=== PATIENT | female | born 1955 | race Caucasian/White ===

== ENCOUNTER → 2019-02-18 09:57 | Outpatient (CLI) | payer OTHER, SELFPAY ==
--- NOTE | 2019-02-18 09:59 | BI_ITS ---
MAMMOGRAPHY - BILATERAL SCREENING REASON FOR EXAM: Female, 63 years old. Routine annual screening examination. PERTINENT HISTORY: Non-contributory. TECHNIQUE: Digital bilateral breast martha (3D mammographic acquisition) in the CC and MLO projections. 2-D mediolateral oblique (MLO) and craniocaudad (CC) views of both breasts were obtained. CAD: Full Field Digital Mammography with Computer Added Detection was performed. COMPARISON: Comparison is made with prior study dated February 19, 2012. FINDINGS: Breast Composition: There are scattered areas of fibroglandular density. Stable asymmetry of breast tissue with more breast tissue is seen in the left retroareolar region as compared to the right side. There are no dominant masses or suspicious calcifications. Stable appearance of the 7.7 mm well-defined nodule in the upper lateral portion of the right breast. This has the appearance of a small lymph node. No other significant abnormalities are identified. There has been no significant change since the prior study. BI/SCREEN MAMM (CAD) W/MARTHA BILAT IMPRESSION: Stable bilateral screening mammogram. Yearly follow-up mammogram recommended. (A) ASSESSMENT CATEGORY: BIRADS Category 2: Benign. A letter regarding these results will be sent to the patient by the facility within 30 days. Approximately 10% of breast cancers are not detected by mammography. A normal mammogram should not delay biopsy of a clinically suspicious abnormality. [id number] Electronically Signed: Joe Mccallum, at 12:25 EDT , Service support ,
== END ==
PROVIDERS: Family Provider Family Medicine; PCP Family Medicine; Referring Provider Family Medicine; Visit Provider Family Medicine
DX: Z12.31 Encounter for screening mammogram for malignant neoplasm of breast (principal)
CPT/HCPCS: 77063; 77067

== ENCOUNTER 2019-03-15 07:41 | Day surgery (SDC) | payer OTHER, SELFPAY ==
--- NOTE | 2019-02-28 02:22 | HP_ITS ---
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 Is patient in pain?: No Allergies codeine Allergy (Mild, Verified 02/28/19 14:10) Unknown fluoxetine [From Prozac] Allergy (Mild, Verified 02/28/19 14:10) Unknown paroxetine [From Paxil] Allergy (Mild, Verified 02/28/19 14:10) Unknown Medications amitriptyline 50 mg tablet 50 mg PO DAILY 02/28/19 [History Confirmed 02/28/19] amlodipine 5 mg tablet 5 mg PO DAILY 02/28/19 [History Confirmed 02/28/19] chlorthalidone 50 mg tablet 50 mg PO DAILY 02/28/19 [History Confirmed 02/28/19] cholecalciferol (vitamin D3) 1,000 unit capsule 1,000 unit PO DAILY 02/28/19 [History Confirmed 02/28/19] cyclobenzaprine 10 mg tablet 10 mg PO HS 02/28/19 [History Confirmed 02/28/19] levothyroxine 50 mcg capsule 50 mcg PO DAILY 02/28/19 [History] lorazepam 0.5 mg tablet 0.5 mg PO QD-BID 02/28/19 [History Confirmed 02/28/19] meloxicam 15 mg tablet 15 mg PO DAILY 02/28/19 [History Confirmed 02/28/19] [facility] Medical History Anxiety (Acute) Hypothyroid (Acute) HTN (hypertension) (Chronic) Surgical History Heel spur (Acute) Status post carpal tunnel release (Acute) Traumatic plantar fasciitis (Acute) Social History (Updated 02/28/19 @ 14:22 by Terry Forrest MD) Smoking Status: Current every day smoker alcohol intake: never HPI HPI HPI: NIGHAT VILLANUEVA, is a 63 F who presents to the office today for HPI HPI Surgical H&P: Yes HPI: NIGHAT VILLANUEVA, is a 63 F who presents to the office today for surgical consultation regarding a change of bowel habit. Patient's primary care physician Shasta Paige and a written compromise surgical consult and recommendations were returned to him. Patient has been most recently seen by Dr. DONNA Bowman who has now retired. Patient was strongly recommended to have a colonoscopy. The patient notes 3 to 4-year history of progressive change of bowel habits with a small pebble-like stool and incomplete evacuation. She claims that she occasionally has some bright red blood to which she attributes external hemorrhoids. She has never had a colonoscopy or flexible sigmoidoscopy. She has had very slow progressive weight gain. No unexpected weight loss. She is a chronic tobacco smoker. She recently has had some intermittent anorexia. Nothing significant. She has had no previous imaging of her abdomen no CT scans. She has not had any previous abdominal surgery. ROS General General: Yes fatigue; no weight change, appetite, colon cancer, breast cancer or weakness HEENT HEENT: No difficulty swallowing, eye injury, eye surgery, swollen glands or hoarseness Endo Endocrine: No thyroid disease, diabetes mellitus, thyroid cancer, Hair loss, heat intolerance or cold intolerance Skin Skin: No rash or changing moles Breast Breast: No left breast lump, right breast lump, nipple discharge, breast pain, abnormal mammogram, abnormal US or breast enlargement Musc Musculoskeletal: Yes back problems and arthritis; no rheumatoid arthritis, gout or joint pain Cardio Cardiovascular: Yes high blood pressure; no murmur, pacemaker, heart disease, atrial fibrillation, heart attack, heart stent, palpitations, shortness of breat with exertion or chest pain Psych Psychiatric: No depression, anxiety or hearing voices Resp Respiratory: No shortness of breath, No sleep apnea, No cough, No COPD, No asthma, No emphysema, No wheezing Gastro Gastrointestinal: Yes abdominal pain, No nausea or vomiting, No diarrhea, Yes constipation, No blood in stool, No acid reflux, Yes hemorrhoids, No ulcers, No gallbladder problem, No black,tarry stools Ahsan Hematologic: No blood thinners, No blood disorders, No bleeding, No anemia, No blood clots Neuro Neurologic: No system reviewed and no additional complaints, except as docu, No as per HPI, No abnormal walking, No abnormal hearing, No abnormal movements, No abnormal speech, No behavioral changes, No burning sensations, No confusion, No seizure-like activity, No unsteadiness, No dizziness, No localized weakness, No frequent falls, No headache(s), No lack of coordination, No loss of vision, No memory loss, No numbness, No other visual disturbances, No radiating pain, No restless legs, No sensory deficit, No fainting, No tingling, No tremor(s), No weakness, No other Exam Const General: cooperative, comfortable, no acute distress Nutritional Appearance: obese Orientation: alert, awake, oriented x3 Other: Odor of tobacco HENMT Head: normal to inspection Chest Chest palpation & inspection: normal inspection of the chest Breast Palpation: No nipple discharge Resp Effort & Inspection: normal respiratory effort Auscultation: clear to auscultation bilaterally Cardio Rate: regular rate Rhythm: regular rhythm Heart Sounds: no murmurs GI Inspection: normal to inspection Palpation: soft, no hepatosplenomegaly Auscultation: normal bowel sounds Musc Cervical Spine: normal cervical lordosis Neuro Cognition: normal cognition Extrem General: no calf tenderness bilaterally Psych Affect: normal affect Assessment & Plan Problems 1. Change in bowel habit R19.4 Plan I recommended the patient a colonoscopy with possible biopsy or polypectomy if indicated. I have discussed the technique, benefits, risks, alternatives. She has had an opportunity to ask and have questions answered. She requests IV sedation. Careful inspection for source of change of bowel habits and intermittent rectal bleeding will be pursued. I have vigorously encouraged the patient to cease her tobacco use/nicotine use in all forms. She would like to schedule and proceed as noted. I appreciate the option of assisting with her surgical care. CC: Dr. James Forrest M.D., F.A.C.S. Coding Level of Care Code 07573 Diagnoses Change in bowel habit R19.4 02/28/19 1422 <Electronically signed by Terry cheatham MD> Date _ Terry Forrest MD I have re-examined the patient. There are no clinical changes since date of exam.
[2019-02-28 14:08] VITALS: BMI 33.3
[2019-03-15] VITALS (7 sets, daily range): BP systolic 81–157; BP diastolic 63–109; PULSE 57–75; RESP 14–18; TEMP 36–36.4; O2SAT 92–99; BMI 32.5
[2019-03-15] MEDS: Lactated Ringers 1,000 ML 100 ML IV (08:11)
--- NOTE | 2019-03-15 08:45 | COLBX_PTH ---
PATIENT: NIGHAT VILLANUEVA LOC: EN U#:[id number] AGE/SX: 63/F ROOM: RE03/15/[address]: Dr. Terry Forrest MD : 1955 BED: DIS: 03/15/2019 SPEC #: [id number] RECD: 03/15/19 13:40 STATUS: CARITO HAJA #: [id number] MING: 03/15/19 08:[address]: Terry Forrest DEPT: SURGICAL PATHOLOGY RECD BY: Vadim Raymundo ENTERED: 03/15/19 13:54 SP TYPE: COLON BX OTHR DR: Dr. James Paige MD Tissues: SPLENIC FLEXURE Procedures: Surgery Specimen Level IV HEADER OPERATION: Colonoscopy (MOD) PRE-OP DIAGNOSIS: Change in bowel habits TISSUE SUBMITTED: Splenic flexure polyp biopsy MICROSCOPIC DIAGNOSIS Splenic flexure polyp, biopsy: A polypoid fragment of colonic mucosa, no pathologic diagnosis. SJ:natalie 03/16/19 MICROSCOPIC DESCRIPTION Slides are reviewed. GROSS DESCRIPTION Received in fixative is one container labeled with the patient's name and designated splenic flexure polyp biopsy. The specimen consists of one irregular fragment of light jamison soft tissue that measures 0.3 x 0.3 x 0.1 cm. The specimen is totally submitted in one cassette. / SJ:rg 03/15/19 TC:5 CPT: 23920
--- NOTE | 2019-03-15 08:52 | OP.ENDO_ITS ---
03/15/2019 James Paige Md Re : Colonoscopy procedure for Katelyn Velasquez Dear Royal This procedure was performed on Friday, March 15, 2019. My impressions and recommendations are as follows: Impressions : - Non-thrombosed internal hemorrhoids and internal hemorrhoids that prolapse with straining, but require manual replacement into the anal canal (Grade III) found on digital rectal exam. - Diverticulosis in the sigmoid colon and in the descending colon. - One 5 mm polyp at the splenic flexure, removed with a cold biopsy forceps. Resected and retrieved. Recommendations : - Await pathology results. - Repeat colonoscopy in 5 years for surveillance based on pathology results. - Return to my office in 1 week. - Discharge patient to home. - Resume previous diet. - Continue present medications. - Use fiber, for example Citrucel, Fibercon, Konsyl or Metamucil. Will offer office appt. to discuss ppH vs hemorrhoidectomy My findings are described in the full procedure note, which is enclosed. If I can be of further assistance, please feel free to contact me at Doctor phone number(s): Work: . Sincerely, Terry Forrest MD 03/15/2019 8:51:48 AM This report has been signed electronically.
== END 2019-03-15 09:31 | disposition home or self-care (01) ==
LOC: EN 07:41 → AC 07:43
PROVIDERS: Family Provider Family Medicine; PCP Family Medicine; Referring Provider Family Medicine; Visit Provider Surgery
PROC: 0DJD8ZZ Inspection of Lower Intestinal Tract, Via Natural or Artificial Opening Endoscopic (ICD-10-PCS; CPT 45378; principal; 2019-03-15 08:40)
DX: D12.3 Benign neoplasm of transverse colon (principal); K57.30 Diverticulosis of large intestine without perforation or abscess without bleeding; K64.2 Third degree hemorrhoids; K62.5 Hemorrhage of anus and rectum; I10 Essential (primary) hypertension; E03.9 Hypothyroidism, unspecified; F41.9 Anxiety disorder, unspecified; F17.200 Nicotine dependence, unspecified, uncomplicated; Z79.899 Other long term (current) drug therapy
CPT/HCPCS: 45380; 88305; 99152; 99153; J7120

== ENCOUNTER 2021-09-17 13:05 | Outpatient (CLI) | payer MEDICARE, SELFPAY ==
[2021-09-17 13:15] LABS: Bacteria 0 SEEN /hpf (None Seen); Mucous, Urine 0 SEEN /hpf (<or=2+); Red Blood Cells-Urine 0 SEEN /hpf (0-5); White Blood Cells 0 SEEN /hpf (0-5)
--- NOTE | 2021-09-17 13:15 | RAD_ITS ---
INDICATION: BACK PAIN, EXAMINATION/TECHNIQUE: X-RAY - XR Abdomen W/ Decub and/or Erect Views COMPARISON: None FINDINGS: BOWEL GAS PATTERN: Non-obstructive. No bowel or stomach distention. Abundance of stool in the large bowel. FREE AIR: Not assessed on a single supine view. ORGANOMEGALY: Not seen. CALCIFICATIONS: Multiple subtle calcifications visualized superimposed over the left renal bed the largest of which measures 0.4 cm. Pelvic calcifications are visualized consistent with phleboliths. Vascular calcifications seen. LOWER CHEST: No acute pathology. BONES AND SOFT TISSUES: Degenerative bone changes are seen. RAD/Abd Inc Decub and/or Erect IMPRESSION: Subtle calcifications visualized superimposed over the left renal bed. Electronically Signed: Brenton Ivan MD at 15:13 EDT ,
--- NOTE | 2021-09-17 13:20 | RAD_ITS ---
INDICATION: BACK PAIN EXAMINATION/TECHNIQUE: X-RAY - XR Chest 2 Views COMPARISON: 09/08/2021. FINDINGS: LINES/DEVICES: None. LUNGS: No consolidation, edema or effusion. No pneumothorax. MEDIASTINUM AND CARDIOVASCULAR STRUCTURES: Cardiac silhouette not enlarged. Central airways and mediastinal contour are unremarkable. BONES AND SOFT TISSUES: Degenerative bone changes.. RAD/Chest PA and Lateral IMPRESSION: No radiographic evidence of acute cardiopulmonary disease. Electronically Signed: Brenton Ivan MD at 15:14 EDT ,
[2021-09-17 15:10] LABS: Absolute Lymphocyte Count 3.36 X10^3/uL (0.83-4.51); Absolute Neutrophil Count 4.3 X10^3/uL (2.0-7.7); Basophil# 0.11 X10^3/uL; Basophil% 1.3 % (0-1); Eosinophil# 0.32 X10^3/uL; Eosinophils% 3.7 % (0-5); Hematocrit 45.5 % (37-47); Hemoglobin 15.5 g/dL (12.0-15.0); Lymphocyte # 3.36 X10^3/ul (0.83-4.51); Lymphocyte % 38.8 % (19-41); Mean Corp Hgb Conc 34.1 g/dL (32-36); Mean Corpuscular Hgb 30.6 pg (27.0-32.0); Mean Corpuscular Volume 89.9 fL (81-99); Mean Platelet Vol. 10.3 fl (6.2-12.0); Monocyte# 0.48 X10^3/uL; Monocyte% 5.5 % (0-10); NRBC Flagged by Analyzer 0 % (0-5); Neutrophil # 4.32 X10^3/uL (2.7-7.7); Platelet Count 262 K/mm3 (150-450); RBC Distribution Width CV 14.4 % (11.6-14.6); RBC Distribution Width SD 47.1 fl (35.1-43.9); Red Blood Count 5.06 M/mm3 (4.2-5.4); White Blood Count 8.7 K/mm3 (4.4-11.0)
[2021-09-17 15:12] LABS: Color, Urine Yellow (Yellow); Glucose, Dipstick Normal (Normal); Ketone-Dipstick 5 mg/dl (Negative); Leukocyte Esterase-Dipstick 25 /ul (Negative); Nitrite-Dipstick Negative (Negative); Occult Blood-Urine Negative /ul (Negative); Protein-Dipstick 15 mg/dl (Negative); Urine Bilirubin Dipstick Negative (Negative); Urine Clarity Clear (Clear); Urine Urobilinogen 1 mg/dl (Normal); Urine pH 6.5 (5.0 - 8.0)
[2021-09-17 15:18] LABS: Squamous Epithelial Cells - UA 0-5 SEEN /hpf (5-10)
[2021-09-17 15:31] LABS: ALB/GLOB Ratio 1.2 RATIO (0.9-2.4); AST(SGOT) 13 U/L (15-37); Alanine Aminotransfer ALT/SGPT 24 U/L (13-56); Albumin, Serum 4.2 g/dL (3.2-5.0); Alkaline Phosphatase 64 U/L (45-117); Anion Gap 3 (5-15); BUN 22 mg/dL (7-18); BUN/Creat Ratio 25.5 RATIO (10-20); Chloride 104 mmol/L (98-107); Creatinine, Serum 0.86 mg/dL (0.55-1.02); EST Glomerular Filtration Rate 70 mL/min (>60); Est Glom Filt Rate - Afr Amer 85 mL/min (>60); Globulin 3.5 g/dL (2.2-4.2); Glucose 89 mg/dL (74-106); Potassium 3.3 mmol/L (3.5-5.1); Protein, Total 7.7 g/dL (6.4-8.2); Sodium Level 140 mmol/L (136-145)
== END 2021-09-17 23:59 | disposition home or self-care (01) ==
LOC: MTLAB 13:11
PROVIDERS: PCP Family Medicine; Referring Provider Family Medicine; Visit Provider Family Medicine
DX: M54.9 Dorsalgia, unspecified (principal)
CPT/HCPCS: 36415; 71046; 74019; 80053; 81001; 85025

== ENCOUNTER → 2021-10-03 | Outpatient (CLI) | payer MEDICARE, SELFPAY ==
--- NOTE | 2021-10-03 18:53 | CT_ITS ---
ACR Level 3 findings have been noted. An addendum which confirms receipt of the report will follow. INDICATION: chronic back pain and hx kidney stones EXAMINATION: CT Abdomen And Pelvis W/O Contrast Injection TECHNIQUE: Helically acquired images were obtained of the abdomen and pelvis without the use of IV contrast. A radiation dose optimization technique was used for this scan. Oral contrast: None. COMPARISON: None FINDINGS: Evaluation of the solid organs and vascular structures is limited without intravenous contrast. Visualized lung bases: Unremarkable Liver: Diffusely hypodense consistent with fatty liver. Gallbladder: Multiple intraluminal stones seen. Spleen: Unremarkable Pancreas: Unremarkable Adrenal Glands: 2.4 cm right adrenal nodule measuring -14 [place] units. Kidneys: Unremarkable Vasculature: Moderate aortoiliac atherosclerotic disease. GI Tract: Scattered diverticula throughout the colon without evidence of inflammation. Circumferential wall thickening of a short segment of sigmoid colon/rectum. Lymphadenopathy: None Peritoneum: No ascites. Bladder: Unremarkable Reproductive organs: Unremarkable Bones/Soft tissues: There are diffuse degenerative changes of the spine. CT/Abdomen/Pelvis without Cont IMPRESSION: No renal or ureteral stones seen. 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 Circumferential wall thickening of a short segment of sigmoid colon/rectum. This could be related to chronic diverticulitis, however cannot rule out malignancy. Recommend colonoscopy. Fatty liver. Cholelithiasis. Electronically Signed: Efrain Amado MD at 21:19 EDT ,
== END | disposition home or self-care (01) ==
PROVIDERS: PCP Family Medicine; Visit Provider Family Medicine
DX: M54.9 Dorsalgia, unspecified (principal); G89.29 Other chronic pain; Z87.442 Personal history of urinary calculi
CPT/HCPCS: 74176

== ENCOUNTER → 2021-11-01 | Outpatient (CLI) | payer MEDICARE, SELFPAY ==
--- NOTE | 2021-11-01 08:41 | US_ITS ---
STUDY: ABDOMINAL ULTRASOUND - RIGHT UPPER QUADRANT REASON FOR VISIT: Female, 65 years old . Gallstones. Fatty liver. TECHNIQUE: Ultrasound evaluation of the right upper quadrant was performed with real-time and static bowling-scale imaging. TECHNICAL QUALITY: Adequate. COMPARISON: Comparison is made with prior CT scan of the abdomen and pelvis dated 10/03/2021. FINDINGS: Liver: The liver measures 15.8 cm. There is increased echogenicity consistent with fatty infiltration. The bile ducts are within normal limits. There is hepatic color flow. The direction of portal flow is hepatopetal. There is no demonstrated mass lesion. Gallbladder: Normal distended gallbladder. The gallbladder wall measures 2.1 mm. There is a positive sonographic Truong''s sign. There is a small amount of pericholecystic fluid. There are multiple echogenic structures within the gallbladder, consistent with multiple gallstones. Small amount of sludge is seen in the gallbladder lumen. Common Bile Duct (C.B.D.): The common bile duct measures 7.5 mm. Pancreas: Normal size of the head, body and tail of the pancreas. There is increased echogenicity of the pancreas. There is no demonstrated pancreatic mass or cyst. Right Kidney: Normal size of the right kidney. The right kidney measures 10.8 cm x 5.4 cm x 3.9 cm. Normal renal cortex. The right cortex measures 1.3 cm. There is no demonstrated renal mass or cyst. There is no right hydronephrosis. US/Gallbladder IMPRESSION: Fatty infiltration of the liver. Multiple gallstones with sludge in the gallbladder lumen. Positive TRUONG sign. Small amount of pericholecystic fluid. Electronically Signed: Joe Mccallum MD at 10:37 EDT ,
== END | disposition home or self-care (01) ==
PROVIDERS: PCP Family Medicine; Referring Provider Surgery; Visit Provider Surgery
DX: R93.89 Abnormal findings on diagnostic imaging of other specified body structures (principal)
CPT/HCPCS: 76705

== ENCOUNTER 2021-11-26 08:35 | Day surgery (SDC) | payer MEDICARE, SELFPAY ==
[2021-11-26] VITALS (7 sets, daily range): BP systolic 90–130; BP diastolic 63–84; PULSE 66–76; RESP 16–18; TEMP 36.1–36.4; O2SAT 95–100; BMI 29.7
--- NOTE | 2021-11-26 09:08 | HP.PCM_ITS ---
History and Physical Date of Admission: 11/26/21 Visit Reasons:?Colonoscopy Chief Complaint: c-scope Nitrate Operator Required: No Is patient in pain?: No Allergies paroxetine [From Paxil] Allergy (Mild, Verified 10/24/21 08:22) ALTERED SENSATIONcodeine Adverse Reaction (Mild, Verified 10/24/21 08:22) HEADACHESfluoxetine [From Prozac] Adverse Reaction (Mild, Verified 10/24/21 08:22) ALTERED SENSATION Medications amitriptyline 50 mg tablet 50 mg PO QHS 02/28/19 [History Confirmed 10/24/21] amlodipine 5 mg tablet 5 mg PO QHS 02/28/19 [History Confirmed 10/24/21] chlorthalidone 50 mg tablet 50 mg PO DAILY 02/28/19 [History Confirmed 10/24/21] cholecalciferol (vitamin D3) 25 mcg (1,000 unit) capsule 1,000 unit PO QHS 02/28/19 [History Confirmed 10/24/21] cyclobenzaprine 10 mg tablet 10 mg PO QHS PRN PRN 02/28/19 [History Confirmed 10/24/21] levothyroxine 50 mcg capsule 50 mcg PO DAILY 02/28/19 [History Confirmed 10/24/21] lorazepam 0.5 mg tablet 0.5 mg PO BID PRN PRN 02/28/19 [History Confirmed 10/24/21] potassium chloride 10 mEq tablet,extended release tablet PO 10/24/21 [History Confirmed 10/24/21] tramadol 50 mg tablet 50 mg PO? tab 10/24/21 [History Confirmed 10/24/21] PFSH Medical History?(Updated 10/24/21 @ 08:[address] Terry Forrest MD) Abnormal CT scan Anxiety Change in bowel habit Chronic constipation HTN (hypertension) Hypothyroid Internal hemorrhoid, bleeding Surgical History? Heel spur History of colonoscopy (~03/15/19) Status post carpal tunnel release Traumatic plantar fasciitis Social History? Smoking Status:? Current every day smoker alcohol intake:? never HPI HPI HPI: NIGHAT VILLANUEVA, is a 65 F who presents to the office today for surgical consultation regarding a possible colonoscopy.? The patient is referred by Dr. Yohan John intermittent compromise surgical consult recommendations will return to him.? Appears that her most recent colonoscopy was March 2019.? Possible 5 mm polyp in the splenic flexure but pathology simply demonstrated colonic mucosa.? She has also been consulted on for hemorrhoids.? Patient is still feeling urgency and occasional blood per rectum.? As of September 17, 2021 white blood cell count was 8.7 with a hemoglobin 15.5 and hematocrit of 45.5 and a platelet count of 262,000.? BUN is 22 and creatinine 0.86.? Liver function tests were normal.? Because of complaint of history of kidney stones and chronic back pain the patient had a CT abdomen pelvis without contrast on October 03, 2021 as noted below.? Multiple gallstones noted.? Moderate aortoiliac atherosclerotic disease.? Scattered diverticula throughout the colon with a suggestion of circumferential wall thickening of a short segment of the sigmoid.? No renal stones identified. Remotely I assisted her with infrared treatment of internal hemorrhoids which temporarily assisted her. He is complaining of spasm occasionally low abdomen not able to defecate stool but then straining and then having bright red blood occasionally clots.? She states that taking MiraLAX and fiber supplement actually made the bleeding worse.? That she actually filled the bowl with blood.? She does have problems with back pain and she points to the mid back but thinks that is more related to physical bending and lifting.? She has not previously been aware that she has had gallstones and she denies any particular food intolerance. She denies family history of colon cancer. October 03, 2021 ADDENDUM by Efrain Amado MD on 10/03/21 at 2119 INDICATION: chronic back pain and hx kidney stones EXAMINATION: CT Abdomen And Pelvis W/O Contrast Injection TECHNIQUE: Helically acquired images were obtained of the abdomen and pelvis without the use of IV contrast. A radiation dose optimization technique was used for this scan. Oral contrast: None. COMPARISON: None FINDINGS: Evaluation of the solid organs and vascular structures is limited without intravenous contrast. Visualized lung bases: Unremarkable Liver: Diffusely hypodense consistent with fatty liver. Gallbladder:? Multiple intraluminal stones seen. Spleen: Unremarkable Pancreas: Unremarkable Adrenal Glands: 2.4 cm right adrenal nodule measuring -14 [place] units. Kidneys: Unremarkable Vasculature: Moderate aortoiliac atherosclerotic disease. GI Tract: Scattered diverticula throughout the colon without evidence of inflammation.? Circumferential wall thickening of a short segment of sigmoid colon/rectum. Lymphadenopathy: None Peritoneum: No ascites. Bladder: Unremarkable Reproductive organs: Unremarkable Bones/Soft tissues: There are diffuse degenerative changes of the spine. 10/03/21 2119Date cc:? Dr. Yohan John MD ~*Signed ADDENDUM by Efrain Amado MD on 10/03/[address]/Abdomen/Pelvis without Cont IMPRESSION: ? No renal or ureteral stones seen. ? 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 ? Circumferential wall thickening of a short segment of sigmoid colon/rectum. This could be related to chronic diverticulitis, however cannot rule out malignancy.? Recommend colonoscopy. ? Fatty liver. ? Cholelithiasis. ? N.B. : Juliet Molina RN, confirmed on 10/04/2021 14:17:14 (ET) that the healthcare facility has received the radiology report. ? Electronically Signed: Efrain Amado MD at 21:19 EDT , ? 10/04/21 1424Date cc:? Dr. Yohan John MD ~*Signed ACR Level 3 findings have been noted.? An addendum which confirms receipt of the report will follow. INDICATION: chronic back pain and hx kidney stones EXAMINATION: CT Abdomen And Pelvis W/O Contrast Injection TECHNIQUE: Helically acquired images were obtained of the abdomen and pelvis without the use of IV contrast. A radiation dose optimization technique was used for this scan. Oral contrast: None. COMPARISON: None FINDINGS: Evaluation of the solid organs and vascular structures is limited without intravenous contrast. Visualized lung bases: Unremarkable Liver: Diffusely hypodense consistent with fatty liver. Gallbladder:? Multiple intraluminal stones seen. Spleen: Unremarkable Pancreas: Unremarkable Adrenal Glands: 2.4 cm right adrenal nodule measuring -14 [place] units. Kidneys: Unremarkable Vasculature: Moderate aortoiliac atherosclerotic disease. GI Tract: Scattered diverticula throughout the colon without evidence of inflammation.? Circumferential wall thickening of a short segment of sigmoid colon/rectum. Lymphadenopathy: None Peritoneum: No ascites. Bladder: Unremarkable Reproductive organs: Unremarkable Bones/Soft tissues: There are diffuse degenerative changes of the spine. CT/Abdomen/Pelvis without Cont IMPRESSION: ? No renal or ureteral stones seen. ? 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 ? Circumferential wall thickening of a short segment of sigmoid colon/rectum. This could be related to chronic diverticulitis, however cannot rule out malignancy.? Recommend colonoscopy. ? Fatty liver. ? Cholelithiasis. ? Electronically Signed: Efrain Amado MD at 21:19 EDT , ROS General General: No weight change, appetite, fatigue, colon cancer, breast cancer or weakness HEENT HEENT: No difficulty swallowing, eye injury, eye surgery, swollen glands or hoarseness Endo Endocrine: No thyroid disease, diabetes mellitus, thyroid cancer, Hair loss, heat intolerance or cold intolerance Skin Skin: No rash or changing moles Breast Breast: No left breast lump, right breast lump, nipple discharge, breast pain, abnormal mammogram, abnormal US or breast enlargement Musc Musculoskeletal: Yes back problems; No arthritis, rheumatoid arthritis, gout or joint pain Cardio Cardiovascular: Yes high blood pressure; No murmur, pacemaker, heart disease, atrial fibrillation, heart attack, heart stent, palpitations, shortness of breat with exertion or chest pain Psych Psychiatric: No depression, anxiety or hearing voices Resp Respiratory: No shortness of breath, No sleep apnea, No cough, No COPD, No asthma, No emphysema and No wheezing Gastro Gastrointestinal: No abdominal pain, No nausea or vomiting, No diarrhea, Yes constipation, No blood in stool, No acid reflux, Yes hemorrhoids, No ulcers, No gallbladder problem and No black,tarry stools Ahsan Hematologic: No blood thinners, No blood disorders, No bleeding, No anemia and No blood clots Neuro Neurologic: No system reviewed and no additional complaints, except as documented, No as per HPI, No abnormal gait, No abnormal hearing, No abnormal movements, No abnormal speech, No behavioral changes, No burning sensations, No confusion, No convulsions, No disequilibrium, No dizziness, No localized weakness, No frequent falls, No headache(s), No lack of coordination, No loss of vision, No memory loss, No numbness, No other visual disturbances, No radicular pain, No restless legs, No sensory deficit, No syncope, No tingling, No tremor(s), No weakness and No other Exam Const General: cooperative, comfortable and no acute distress Other: Odor of tobacco HENMT Head: normal to inspection Eyes General: appearance normal, both eyes and all related structures Neck Neck: normal visual inspection Chest Other: Increased AP diameter Resp Other: Clear apices.? Right basilar wheeze. Cardio Rate: regular rate Rhythm: regular rhythm GI Other: Soft, nontender, overweight, no palpable mass no tenderness Skin General: no rashes or lesions noted Neuro General: patient alert and patient awake Extrem General: no calf tenderness Psych Appearance: grossly normal Assessment and Plan Assessment and Plan (1) Abnormal CT scan: ?Status:?Acute (2) Internal hemorrhoid, bleeding: ?Status:?Acute (3) Back pain: ?Status:?Acute ?Qualifiers: ?Back pain location:?back pain in other location??Chronicity:?unspecified ? Qualified Code(s):?M54.89 - Other dorsalgia ? ? ? Orders:?Orders: ? Gallbladder Today R93.89 ?Plan - Dr. Terry Forrest MD: Patient with back pain usually exertional but questionable gallstones on CAT scan.? I recommend that we obtain a gallbladder ultrasound to confirm or deny the presence of gallstones. Problems with intermittent abdominal spasms and persistent problems with rectal bleeding.? Abnormal CT scan suggesting thickening of the sigmoid colon albeit this was an completely noncontrasted CT.? I recommend a colonoscopy with possible biopsy or polypectomy.? Previous exam March 2019.? I felt there was a polyp present but biopsy showed normal mucosa.? Very careful inspection for potential source of rectal bleeding and very careful inspection of hemorrhoidal disease within potential recommendations for further office follow-up to discuss definitive hemorrhoidal management. She has had an opportunity to ask and have questions answered.? We did make comment regarding her ongoing cigarette use and recommended cessation. She is not on any anticoagulants.? Denies history of DVT. I appreciate the opportunity of assisting with her surgical care we will schedule procedure at her discretion. Copy: Dr Yohan Forrest M.D., F.A.C.S. I have re-examined the patient. There are no clinical changes since date of exam. Terry Forrest M.D., F.A.C.S.
[2021-11-26] MEDS: Lactated Ringers 1,000 ML 15 ML IV (09:33)
--- NOTE | 2021-11-26 09:45 | COLBX_PTH ---
PATIENT: NIGHAT VILLANUEVA LOC: EN U#:[id number] AGE/SX: 66/F ROOM: RE11/26/[address]: Dr. Terry Forrest MD : 1955 BED: DIS: 11/26/2021 SPEC #: [id number] RECD: 11/26/21 10:51 STATUS: CARITO SMYTH #: [id number] MING: 11/26/21 09:[address]: Terry Forrest DEPT: SURGICAL PATHOLOGY RECD BY: Rj Duke ENTERED: 11/26/21 13:11 SP TYPE: COLON BX OTHR DR: Dr. Yohan John MD Tissues: Rectum, NOS Procedures: Surgery Specimen Level IV HEADER OPERATION: Colonoscopy (MAC) PRE-OP DIAGNOSIS: Abnormal CT scan, bleeding internal hemorrhoid, back pain TISSUE SUBMITTED: Proximal rectal polyps biopsy MICROSCOPIC DIAGNOSIS Proximal rectal polyps, biopsy: Fragments of polypoid colonic mucosa with focal hyperplastic change. AM:natalie 11/27/2021 MICROSCOPIC DESCRIPTION Slides are reviewed. GROSS DESCRIPTION Received in fixative is one container labeled with the patient's name and designated proximal rectal polyp biopsy. The specimen consists of multiple irregular fragments of light jamison soft tissue that in aggregate measure 1.5 x 0.3 x 0.1 cm. The specimen is totally submitted in one cassette. / SJ:natalie 11/26/2021 TC:5 CPT: 06499
--- NOTE | 2021-11-26 10:38 | OP.COLON_ITS ---
Patient Name: Katelyn Velasquez Procedure Date: 11/26/2021 10:06 AM Date of : 1955 Age: 66 Procedure: Colonoscopy Indications: Rectal bleeding, Abnormal CT of the GI tract Providers: Terry Forrest MD Referring MD: Yohan John Medicines: See the Anesthesia note for documentation of the administered medications Patient Profile: Last Colonoscopy: March 2019. Complications: No immediate complications. Procedure: Pre-Anesthesia Assessment: - Prior to the procedure, a History and Physical was performed, and patient medications and allergies were reviewed. The patient's tolerance of previous anesthesia was also reviewed. The risks and benefits of the procedure and the sedation options and risks were discussed with the patient. All questions were answered, and informed consent was obtained. Prior Anticoagulants: The patient has taken no previous anticoagulant or antiplatelet agents. ASA Grade Assessment: II - A patient with mild systemic disease. After reviewing the risks and benefits, the patient was deemed in satisfactory condition to undergo the procedure. After I obtained informed consent, the scope was passed under direct vision. Throughout the procedure, the patient's blood pressure, pulse, and oxygen saturations were monitored continuously. The adult colonoscope was introduced through the anus and advanced to the cecum, identified by appendiceal orifice and ileocecal valve. The colonoscopy was performed without difficulty. The patient tolerated the procedure well. The quality of the bowel preparation was good. The ileocecal valve and the appendiceal orifice were photographed. Scope In: 10:15:33 AM Scope Withdrawal Time 0 hours 10 minutes 43 seconds Scope Out: 10:32:32 AM Total Procedure Duration Time 0 hours 16 minutes 59 seconds Findings: The digital rectal exam findings include non-thrombosed external hemorrhoids, non-thrombosed internal hemorrhoids and internal hemorrhoids that prolapse with straining, but require manual replacement into the anal canal (Grade III). Four sessile polyps were found in the rectum. The polyps were 2 to 3 mm in size. These polyps were removed with a cold biopsy forceps. Resection and retrieval were complete. Multiple diverticula were found in the sigmoid colon and descending colon. The exam was otherwise without abnormality. Impression: - Non-thrombosed external hemorrhoids, non-thrombosed internal hemorrhoids and internal hemorrhoids that prolapse with straining, but require manual replacement into the anal canal (Grade III) found on digital rectal exam. - Four 2 to 3 mm polyps in the rectum, removed with a cold biopsy forceps. Resected and retrieved. - Diverticulosis in the sigmoid colon and in the descending colon. - The examination was otherwise normal. Recommendation: - Discharge patient to home. - Resume previous diet. - Continue present medications. - Repeat colonoscopy in 5 years for surveillance based on pathology results. - Return to my office in 1 week to discuss gallbladder disease Procedure Code(s): --- Professional --- 43673, Colonoscopy, flexible; with biopsy, single or multiple Diagnosis Code(s): --- Professional --- K64.2, Third degree hemorrhoids K64.4, Residual hemorrhoidal skin tags K62.1, Rectal polyp K62.5, Hemorrhage of anus and rectum K57.30, Diverticulosis of large intestine without perforation or abscess without bleeding R93.3, Abnormal findings on diagnostic imaging of other parts of digestive tract CPT copyright 2017 [employer]. All rights reserved. The codes documented in this report are preliminary and upon clinical trial educator review may be revised to meet current compliance requirements. Terry Forrest MD 11/26/2021 10:38:10 AM This report has been signed electronically. Number of Addenda: 0 Note Initiated On: 11/26/2021 10:06 AM
--- NOTE | 2021-11-26 10:39 | OP.CCLET_ITS ---
11/26/2021 Yohan John [address] [place] [address] Re : Colonoscopy procedure for Katelyn Velasquez Dear Dr. John This procedure was performed on Friday, November 26, 2021. My impressions and recommendations are as follows: Impressions : - Non-thrombosed external hemorrhoids, non-thrombosed internal hemorrhoids and internal hemorrhoids that prolapse with straining, but require manual replacement into the anal canal (Grade III) found on digital rectal exam. - Four 2 to 3 mm polyps in the rectum, removed with a cold biopsy forceps. Resected and retrieved. - Diverticulosis in the sigmoid colon and in the descending colon. - The examination was otherwise normal. Recommendations : - Discharge patient to home. - Resume previous diet. - Continue present medications. - Repeat colonoscopy in 5 years for surveillance based on pathology results. - Return to my office in 1 week to discuss gallbladder disease My findings are described in the full procedure note, which is enclosed. If I can be of further assistance, please feel free to contact me at Doctor phone number(s): Work: . Sincerely, Terry Forrest MD 11/26/2021 10:38:10 AM This report has been signed electronically.
== END 2021-11-26 11:29 | disposition home or self-care (01) ==
LOC: EN 08:35 → AC 08:37
PROVIDERS: PCP Family Medicine; Referring Provider Family Medicine; Visit Provider Surgery
PROC: 0DJD8ZZ Inspection of Lower Intestinal Tract, Via Natural or Artificial Opening Endoscopic (ICD-10-PCS; CPT 45378; principal; 2021-11-26 09:40)
DX: K62.1 Rectal polyp (principal); K62.5 Hemorrhage of anus and rectum; G89.29 Other chronic pain; K57.30 Diverticulosis of large intestine without perforation or abscess without bleeding; K64.2 Third degree hemorrhoids; K64.4 Residual hemorrhoidal skin tags; I10 Essential (primary) hypertension; E03.9 Hypothyroidism, unspecified; M54.9 Dorsalgia, unspecified; F17.210 Nicotine dependence, cigarettes, uncomplicated; Z79.890 Hormone replacement therapy; Z79.899 Other long term (current) drug therapy
CPT/HCPCS: 45380; 88305; J7120; J2405

== ENCOUNTER 2022-01-14 05:59 | Day surgery (SDC) | payer MEDICARE, SELFPAY ==
--- NOTE | 2022-01-08 13:07 | EKG12_ITS ---
Test Reason : PRE-OP Blood Pressure : / mmHG Vent. Rate : 068 BPM Atrial Rate : 068 BPM P-R Int : 154 ms QRS Dur : 072 ms QT Int : 406 ms P-R-T Axes : 002 -43 090 degrees QTc Int : 431 ms Normal sinus rhythm Left axis deviation Inferior infarct , age undetermined Abnormal ECG Confirmed by LINDA LAKHANI, ROXANNE ([id number]), sports editor OTTO DEE ([id number]) on 01/10/2022 1:52:07 PM Referred By: Terry Forrest Confirmed By:ROXANNE MCKEON MD
[2022-01-08 13:15] LABS: Hematocrit 49.3 % (37-47); Hemoglobin 17.2 g/dL (12.0-15.0); Mean Corp Hgb Conc 34.9 g/dL (32-36); Mean Corpuscular Hgb 31.3 pg (27.0-32.0); Mean Corpuscular Volume 89.8 fL (81-99); Mean Platelet Vol. 9.5 fl (6.2-12.0); Platelet Count 289 K/mm3 (150-450); RBC Distribution Width CV 14.4 % (11.6-14.6); RBC Distribution Width SD 47.2 fl (35.1-43.9); Red Blood Count 5.49 M/mm3 (4.2-5.4)
[2022-01-08 13:41] LABS: Anion Gap 6 (5-15); BUN 17 mg/dL (7-18); BUN/Creat Ratio 17.6 RATIO (10-20); Calcium,Total 9.5 mg/dL (8.5-10.1); Chloride 101 mmol/L (98-107); Creatinine, Serum 0.97 mg/dL (0.55-1.02); EST Glomerular Filtration Rate 61 mL/min (>60); Est Glom Filt Rate - Afr Amer 74 mL/min (>60); Glucose 127 mg/dL (74-106); Potassium 3.3 mmol/L (3.5-5.1); Sodium Level 140 mmol/L (136-145)
[2022-01-08 13:54] LABS: Thyroid Stim Hormone (TSH) 1.73 uIU/mL (0.358-3.74)
[2022-01-14 06:28] VITALS: BP 142/80; PULSE 71; RESP 16; TEMP 35.8; O2SAT 95; BMI 30.6
[2022-01-14] MEDS: Lactated Ringers 1,000 ML 15 ML IV (06:31)
[2022-01-14 06:36] LABS: Potassium 3.4 mmol/L (3.5-5.1)
--- NOTE | 2022-01-14 07:07 | HP.PCM_ITS ---
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: No Is patient in pain?: No Allergies paroxetine [From Paxil] Allergy (Mild, Verified 12/09/21 13:37) ALTERED SENSATIONcodeine Adverse Reaction (Mild, Verified 12/09/21 13:37) HEADACHESfluoxetine [From Prozac] Adverse Reaction (Mild, Verified 12/09/21 13:37) ALTERED SENSATION Medications amitriptyline 50 mg tablet 50 mg PO QHS 02/28/19 [History Confirmed 12/09/21] amlodipine 5 mg tablet (Norvasc) 5 mg PO QHS 02/28/19 [History Confirmed 12/09/21] chlorthalidone 50 mg tablet 50 mg PO DAILY 02/28/19 [History Confirmed 12/09/21] cholecalciferol (vitamin D3) 25 mcg (1,000 unit) capsule 1,000 unit PO QHS 02/28/19 [History Confirmed 12/09/21] cyclobenzaprine 10 mg tablet 10 mg PO QHS PRN PRN BACK PAIN 02/28/19 [History Confirmed 12/09/21] levothyroxine 50 mcg capsule 50 mcg PO DAILY 02/28/19 [History Confirmed 12/09/21] lorazepam 0.5 mg tablet (Ativan) 0.5 mg PO BID PRN PRN Anxiety 02/28/19 [History Confirmed 12/09/21] potassium chloride 10 mEq tablet,extended release 10 meq PO DAILY 10/24/21 [History Confirmed 12/09/21] tramadol 50 mg tablet 50 mg PO DAILY PRN PRN Pain 10/24/21 [History Confirmed 12/09/21] PFSH Medical History? Abnormal CT scan Alcohol use Anxiety Change in bowel habit Chronic constipation Diverticulosis History of stress test HTN (hypertension) Hypothyroid Internal hemorrhoid, bleeding Smoker Wears glasses Surgical History? Heel spur History of colonoscopy (~03/15/19) Status post carpal tunnel release Traumatic plantar fasciitis Social History? Smoking Status:? Current every day smoker tobacco type: cigarettes alcohol intake:? never HPI HPI HPI: NIGHAT VILLANUEVA, is a 66 F who presents to the office today for surgical follow-up of rectal bleeding and a colonoscopy that I performed for her on November 26, 2021.? Grade 3 hemorrhoids identified on examination.? Diverticulosis of the sigmoid and descending colon.? Small rectal polyps were consistent with hyperplastic change. She returns today to discuss gallbladder disease and hemorrhoid disease Because of a history of kidney stones and chronic back pain the patient has CT scan performed October 03, 2021 showing multiple gallstones and moderate aortoiliac atherosclerotic disease and scattered diverticula of the colon with circumferential wall thickening of a short segment of the sigmoid. I obtained a gallbladder ultrasound on her on November 01, 2021.? This demonstrated fatty infiltration of the liver and multiple gallstones with sludge in the g allbladder lumen.? Positive Truong sign.? Small amount of pericholecystic fluid.? The common bile duct measured 7.5 mm. The patient was complaining at the time of her visit of spasm and straining and need to defecate followed by bright red blood with occasional clots in the toilet bowl.? She has had remote history of infrared treatment of internal hemorrhoids. My previous notes reflect the following Allergies paroxetine [From Paxil] Allergy (Mild, Verified 10/24/21 08:22) ALTERED SENSATIONcodeine Adverse Reaction (Mild, Verified 10/24/21 08:22) HEADACHESfluoxetine [From Prozac] Adverse Reaction (Mild, Verified 10/24/21 08:22) ALTERED SENSATION Medications amitriptyline 50 mg tablet 50 mg PO QHS 02/28/19 [History Confirmed 10/24/21] amlodipine 5 mg tablet 5 mg PO QHS 02/28/19 [History Confirmed 10/24/21] chlorthalidone 50 mg tablet 50 mg PO DAILY 02/28/19 [History Confirmed 10/24/21] cholecalciferol (vitamin D3) 25 mcg (1,000 unit) capsule 1,000 unit PO QHS 02/28/19 [History Confirmed 10/24/21] cyclobenzaprine 10 mg tablet 10 mg PO QHS PRN PRN 02/28/19 [History Confirmed 10/24/21] levothyroxine 50 mcg capsule 50 mcg PO DAILY 02/28/19 [History Confirmed 10/24/21] lorazepam 0.5 mg tablet 0.5 mg PO BID PRN PRN 02/28/19 [History Confirmed 10/24/21] potassium chloride 10 mEq tablet,extended release tablet PO 10/24/21 [History Confirmed 10/24/21] tramadol 50 mg tablet 50 mg PO? tab 10/24/21 [History Confirmed 10/24/21] PFSH Medical History?(Updated 10/24/21 @ 08:[address] Terry Forrest MD) Abnormal CT scan Anxiety Change in bowel habit Chronic constipation HTN (hypertension) Hypothyroid Internal hemorrhoid, bleeding Surgical History? Heel spur History of colonoscopy (~03/15/19) Status post carpal tunnel release Traumatic plantar fasciitis Social History? Smoking Status:? Current every day smoker alcohol intake:? never HPI HPI HPI: NIGHAT VILLANUEVA, is a 65 F who presents to the office today for surgical consultation regarding a possible colonoscopy.? The patient is referred by Dr. Yohan John intermittent compromise surgical consult recommendations will return to him.? Appears that her most recent colonoscopy was March 2019.? Possible 5 mm polyp in the splenic flexure but pathology simply demonstrated colonic mucosa.? She has also been consulted on for hemorrhoids.? Patient is still feeling urgency and occasional blood per rectum.? As of September 17, 2021 white blood cell count was 8.7 with a hemoglobin 15.5 and hematocrit of 45.5 and a platelet count of 262,000.? BUN is 22 and creatinine 0.86.? Liver function tests were normal.? Because of complaint of history of kidney stones and chronic back pain the patient had a CT abdomen pelvis without contrast on October 03, 2021 as noted below.? Multiple gallstones noted.? Moderate aortoiliac atherosclerotic disease.? Scattered diverticula throughout the colon with a suggestion of circ umferential wall thickening of a short segment of the sigmoid.? No renal stones identified. Remotely I assisted her with infrared treatment of internal hemorrhoids which temporarily assisted her. He is complaining of spasm occasionally low abdomen not able to defecate stool but then straining and then having bright red blood occasionally clots.? She states that taking MiraLAX and fiber supplement actually made the bleeding worse.? That she actually filled the bowl with blood.? She does have problems with back pain and she points to the mid back but thinks that is more related to physical bending and lifting.? She has not previously been aware that she has had gallstones and she denies any particular food intolerance. She denies family history of colon cancer. October 03, 2021 ADDENDUM by Efrain Amado MD on 10/03/21 at 2119 INDICATION: chronic back pain and hx kidney stones EXAMINATION: CT Abdomen And Pelvis W/O Contrast Injection TECHNIQUE: Helically acquired images were obtained of the abdomen and pelvis without the use of IV contrast. A radiation dose optimization technique was used for this scan. Oral contrast: None. COMPARISON: None FINDINGS: Evaluation of the solid organs and vascular structures is limited without intravenous contrast. Visualized lung bases: Unremarkable Liver: Diffusely hypodense consistent with fatty liver. Gallbladder:? Multiple intraluminal stones seen. Spleen: Unremarkable Pancreas: Unremarkable Adrenal Glands: 2.4 cm right adrenal nodule measuring -14 [place] units. Kidneys: Unremarkable Vasculature: Moderate aortoiliac atherosclerotic disease. GI Tract: Scattered diverticula throughout the colon without evidence of inflammation.? Circumferential wall thickening of a short segment of sigmoid colon/rectum. Lymphadenopathy: None Peritoneum: No ascites. Bladder: Unremarkable Reproductive organs: Unremarkable Bones/Soft tissues: There are diffuse degenerative changes of the spine. 10/03/212118Date cc:? Dr. Yohan John MD ~*Signed ADDENDUM by Efrain Amado MD on 10/03/[address]/Abdomen/Pelvis without Cont IMPRESSION: ? No renal or ureteral stones seen. ? 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 ? Circumferential wall thickening of a short segment of sigmoid colon/rectum. This could be related to chronic diverticulitis, however cannot rule out malignancy.? Recommend colonoscopy. ? Fatty liver. ? Cholelithiasis. ? N.B. : Juliet Molina RN, confirmed on 10/04/2021 14:17:14 (ET) that the healthcare facility has received the radiology report. ? Electronically Signed: Efrain Amado MD at 21:19 EDT , ? 10/04/21 1424Date cc:? Dr. Yohan John MD ~*Signed ACR Level 3 findings have been noted.? An addendum which confirms receipt of the report will follow. INDICATION: chronic back pain and hx kidney stones EXAMINATION: CT Abdomen And Pelvis W/O Contrast Injection TECHNIQUE: Helically acquired images were obtained of the abdomen and pelvis without the use of IV contrast. A radiation dose optimization technique was used for this scan. Oral contrast: None. COMPARISON: None FINDINGS: Evaluation of the solid organs and vascular structures is limited without intravenous contrast. Visualized lung bases: Unremarkable Liver: Diffusely hypodense consistent with fatty liver. Gallbladder:? Multiple intraluminal stones seen. Spleen: Unremarkable Pancreas: Unremarkable Adrenal Glands: 2.4 cm right adrenal nodule measuring -14 [place] units. Kidneys: Unremarkable Vasculature: Moderate aortoiliac atherosclerotic disease. GI Tract: Scattered diverticula throughout the colon without evidence of inflammation.? Circumferential wall thickening of a short segment of sigmoid colon/rectum. Lymphadenopathy: None Peritoneum: No ascites. Bladder: Unremarkable Reproductive organs: Unremarkable Bones/Soft tissues: There are diffuse degenerative changes of the spine. CT/Abdomen/Pelvis without Cont IMPRESSION: ? No renal or ureteral stones seen. ? 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 ? Circumferential wall thickening of a short segment of sigmoid colon/rectum. This could be related to chronic diverticulitis, however cannot rule out malignancy.? Recommend colonoscopy. ? Fatty liver. ? Cholelithiasis. ? Electronically Signed: Efrain Amado MD at 21:19 EDT , ROS General General: No weight change, appetite, fatigue, colon cancer, breast cancer or weakness HEENT HEENT: No difficulty swallowing, eye injury, eye surgery, swollen glands or hoarseness Endo Endocrine: No thyroid disease, diabetes mellitus, thyroid cancer, Hair loss, heat intolerance or cold intolerance Skin Skin: No rash or changing moles Breast Breast: No left breast lump, right breast lump, nipple discharge, breast pain, abnormal mammogram, abnormal US or breast enlargement Musc Musculoskeletal: Yes back problems; No arthritis, rheumatoid arthritis, gout or joint pain Cardio Cardiovascular: Yes high blood pressure; No murmur, pacemaker, heart disease, atrial fibrillation, heart attack, heart stent, palpitations, shortness of breat with exertion or chest pain Psych Psychiatric: No depression, anxiety or hearing voices Resp Respiratory: No shortness of breath, No sleep apnea, No cough, No COPD, No asthma, No emphysema and No wheezing Gastro Gastrointestinal: No abdominal pain, No nausea or vomiting, No diarrhea, Yes constipation, No blood in stool, No acid reflux, Yes hemorrhoids, No ulcers, No gallbladder problem and No black,tarry stools Ahsan Hematologic: No blood thinners, No blood disorders, No bleeding, No anemia and No blood clots Neuro Neurologic: No system reviewed and no additional complaints, except as documented, No as per HPI, No abnormal gait, No abnormal hearing, No abnormal movements, No abnormal speech, No behavioral changes, No burning sensations, No confusion, No convulsions, No disequilibrium, No dizziness, No localized weakness, No frequent falls, No headache(s), No lack of coordination, No loss of vision, No memory loss, No numbness, No other visual disturbances, No radicular pain, No restless legs, No sensory deficit, No syncope, No tingling, No tremor(s), No weakness and No other Exam Const General: cooperative, comfortable and no acute distress Other: Odor of tobacco HENMT Head: normal to inspection Eyes General: appearance normal, both eyes and all related structures Neck Neck: normal visual inspection Chest Other: Increased AP diameter Resp Other: Clear apices.? Right basilar wheeze. Cardio Rate: regular rate Rhythm: regular rhythm GI Other: Soft, nontender, overweight, no palpable mass no tenderness Skin General: no rashes or lesions noted Neuro General: patient alert and patient awake Extrem General: no calf tenderness Psych Appearance: grossly normal Assessment and Plan Assessment and Plan (1) Abnormal CT scan: ?Status:?Acute (2) Internal hemorrhoid, bleeding: ?Status:?Acute (3) Back pain: ?Status:?Acute ?Qualifiers: ?Back pain location:?back pain in other location??Chronicity:?unspecified ? Qualified Code(s):?M54.89 - Other dorsalgia ? ? ? Orders:?Orders: ??? Gallbladder?? Today?? R93.89?Plan - Dr. Terry Forrest MD: Patient with back pain usually exertional but questionable gallstones on CAT scan.? I recommend that we obtain a gallbladder ultrasound to confirm or deny th e presence of gallstones. Problems with intermittent abdominal spasms and persistent problems with rectal bleeding.? Abnormal CT scan suggesting thickening of the sigmoid colon albeit this was an completely noncontrasted CT.? I recommend a colonoscopy with possible biopsy or polypectomy.? Previous exam March 2019.? I felt there was a polyp present but biopsy showed normal mucosa.? Very careful inspection for potential source of rectal bleeding and very careful inspection of hemorrhoidal disease within potential recommendations for further office follow-up to discuss definitive hemorrhoidal management. She has had an opportunity to ask and have questions answered.? We did make comment regarding her ongoing cigarette use and recommended cessation. She is not on any anticoagulants.? Denies history of DVT. I appreciate the opportunity of assisting with her surgical care we will schedule procedure at her discretion. Copy: Dr Yohan Forrest M.D., F.A.C.S ROS General General: No weight change, appetite, fatigue, colon cancer, breast cancer or weakness HEENT HEENT: No difficulty swallowing, eye injury, eye surgery, swollen glands or hoarseness Endo Endocrine: No thyroid disease, diabetes mellitus, thyroid cancer, Hair loss, heat intolerance or cold intolerance Skin Skin: No rash or changing moles Breast Breast: No left breast lump, right breast lump, nipple discharge, breast pain, abnormal mammogram, abnormal US or breast enlargement Musc Musculoskeletal: Yes back problems; No arthritis, rheumatoid arthritis, gout or joint pain Cardio Cardiovascular: Yes high blood pressure; No murmur, pacemaker, heart disease, atrial fibrillation, heart attack, heart stent, palpitations, shortness of breat with exertion or chest pain Psych Psychiatric: No depression, anxiety or hearing voices Resp Respiratory: No shortness of breath, No sleep apnea, No cough, No COPD, No asthma, No emphysema and No wheezing Gastro Gastrointestinal: No abdominal pain, No nausea or vomiting, No diarrhea, Yes constipation, No blood in stool, No acid reflux, Yes hemorrhoids, No ulcers, No gallbladder problem and No black,tarry stools Ahsan Hematologic: No blood thinners, No blood disorders, No bleeding, No anemia and No blood clots Neuro Neurologic: No system reviewed and no additional complaints, except as documented, No as per HPI, No abnormal gait, No abnormal hearing, No abnormal movements, No abnormal speech, No behavioral changes, No burning sensations, No confusion, No convulsions, No disequilibrium, No dizziness, No localized weakness, No frequent falls, No headache(s), No lack of coordination, No loss of vision, No memory loss, No numbness, No other visual disturbances, No radicular pain, No restless legs, No sensory deficit, No syncope, No tingling, No tremor(s), No weakness and No other Exam Const General: cooperative, comfortable and no acute distress HENMT Head: normal to inspection Eyes General: appearance normal, both eyes and all related structures Resp Effort & Inspection: normal respiratory effort Auscultation: clear to auscultation bilaterally Cardio Rate: regular rate Rhythm: regular rhythm GI Palpation: soft and no hepatosplenomegaly Musc Cervical Spine: normal cervical lordosis Neuro General: patient alert, patient awake and patient oriented x3 Extrem General: no calf tenderness Assessment and Plan Assessment and Plan (1) Internal hemorrhoid, bleeding: ?Status:?Acute (2) Cholelithiasis with chronic cholecystitis: ?Status:?Chronic Plan Findings are suspicious for chronic cholecystitis cholelithiasis with abnormal gallbladder ultrasound and positive Truong sign and fluid around the gallbladder and multiple gallstones.? In addition the common bile duct is slightly dilated.? I propose for the patient a laparoscopic cholecystectomy with selective cholangiography.? She is aware of the technique, benefit, risk, alternatives.? She has had an opportunity to ask and have questions answered.? We will schedule procedure at her discretion. The colonoscopy demonstrated hyperplastic polyps of the rectum.? No other acute findings.? CT imaging suggesting colonic thickening was not found to be determined upon colonoscopy.? The patient however does have bleeding internal and external hemorrhoids.? I propose for her a surgical hemorrhoidectomy and I have discussed technique, benefit, risk, alternatives.? However I believe that the gallbladder should be addressed first.? Then allow her to recover from her cholecystectomy.? Then pending that time.? Could pursue a surgical hemorrhoidectomy.? She has had an opportunity to ask and have questions answered.? She does note that she has to continue to use a pad because of her rectal bleeding discharge.? We will expedite her care as possible. Copy: Dr. Yohan Forrest M.D., F.A.C.S. The patient states that she has not had any additional bouts of pain. She is interested in pursuing her laparoscopic cholecystectomy with selective cholangiography. She is aware of technique, benefit, risk, alternatives. We will proceed as noted. Terry Forrest M.D., F.A.C.S.
--- NOTE | 2022-01-14 07:10 | DCINST_ITS ---
Discharge Instructions Procedure General Surgery Diet Discharge Diet: Light diet - advance as tolerated (if you have questions about your diet instructions, please talk to you doctor.) Activity Discharge Activity: May Not Drive (for 3-5 days or while taking narcotic pain medicine.) May shower in (days): 1 Lifting Restrictions: 10 pounds Dressing / Incision Call your doctor if your incision/area has: Continuous Slow Oozing, Sudden Increased Bleeding, Increased Pain/ Swelling, Increased Redness and Foul Smelling Discharge Call your doctor if you observe: Fever of 101 or Higher Suture Line Care: Avoid Pulling/Pushing and Avoid Pinching/Bending Additional Dressing/Incision Instructions:: Change or remove dressing in 4 days. Leave steri-strips in place for 1 week. Follow Up Care Please Follow Up With: Terry Forrest MD When: Call [phone] to make an appointment to be seen in about 10 days. Test Results: Test results from this visit will be discussed in further detail at your follow- up appointment, if applicable. Discharge Plan Admission Primary Reason for Your Visit: Chronic cholecystitis cholelithiasis Attending Provider: Terry Forrest Primary Care Provider: Yohan John Consulting Providers: Yohan Degroot Discharge Orders/Prescriptions Prescriptions: New hydrocodone-acetaminophen 5-325 mg tablet 1 tab PO Q6H PRN (Reason: pain) 2 Days Qty: 5 0RF Continued lorazepam [Ativan] 0.5 mg tablet 0.5 mg PO BID PRN PRN (Reason: Anxiety) amitriptyline 50 mg tablet 50 mg PO QHS chlorthalidone 50 mg tablet 50 mg PO DAILY levothyroxine 50 mcg capsule 50 mcg capsule 50 mcg PO DAILY cyclobenzaprine 10 mg tablet 10 mg PO QHS PRN PRN (Reason: BACK PAIN) amlodipine [Norvasc] 5 mg tablet 5 mg PO QHS cholecalciferol (vitamin D3) 1,000 unit capsule 1,000 unit PO QHS potassium chloride 10 mEq tablet extended release 10 meq PO DAILY tramadol 50 mg tablet 50 mg PO DAILY PRN PRN (Reason: Pain) Label Comments: take 1 tablet by mouth four times a day if needed for pain for 7 days Referrals / Follow Up: Yohan John MD [Primary Care Provider] - Disposition Disposition (needs filled in before D/C Order can be placed): Home, Self Care
[2022-01-14] MEDS: Cefazolin 2 GM in 0.9% Normal Saline 100 ML IV (07:23)
--- NOTE | 2022-01-14 07:30 | GALL_PTH ---
PATIENT: NIGHAT VILLANUEVA [place] [facility] [id number] AGE/SX: 66/F ROOM: RE01/14/[address]: Dr. Terry Forrest MD : 1955 BED: DIS: 01/14/2022 SPEC #: [id number] RECD: 01/14/22 10:08 STATUS: CARITO SMYTH #: [id number] MING: 01/14/22 07:[address]: Terry Forrest DEPT: SURGICAL PATHOLOGY RECD BY: Jadyn Christopher ENTERED: 01/14/22 11:26 SP TYPE: ODILON WHELAN DR: MD Dr. Yohan Navarro MD Tissues: Gallbladder, NOS Procedures: Surgery Specimen Level III HEADER OPERATION: Cholecystectomy, Laparoscopic, with selective cholangiography PRE-OP DIAGNOSIS: Cholelithiasis with chronic cholecystitis TISSUE SUBMITTED: Gallbladder MICROSCOPIC DIAGNOSIS Gallbladder, cholecystectomy: Chronic cholecystitis and cholelithiasis. AM:am 01/15/2022 MICROSCOPIC DESCRIPTION Slides are reviewed. GROSS DESCRIPTION Received is one container labeled with the patient's name and designated gallbladder. The specimen consists of a gallbladder measuring 10.0 cm in length and up to 3.5 cm in diameter. The external surface is pink-jamison, smooth and glistening for the most part. Focally it is granular, hemorrhagic and contains cautery artifact. The gallbladder contains green yellow mucoidbile and multiple brown multifaced stones measuring in aggregate 6 x 4 x 3 cm and 0.2 to 2 cm in greatest dimension. The mucosa is bile-stained and without any mass lesions. The gallbladder wall measures up to 0.3 cm in thickness. Supervisor Shuttle Preparation sections from the gallbladder and the cystic duct are submitted in one cassette. / KENNETH:joseph 01/14/22 TC:3 CPT: 71436
[2022-01-14] MEDS: Bupivacaine 0.25% 30 ML Vial (07:45)
--- NOTE | 2022-01-14 07:55 | RAD_ITS ---
INDICATION: PAIN EXAMINATION/TECHNIQUE: Limited spot intraoperative films are presented for evaluation. Total Fluoroscopic Time: 30.6 seconds Number of Fluoroscopic Images: 2 Radiation dosage : 22.33 mGy COMPARISON: 10/03/2021. FINDINGS: Spot fluoroscopic images obtained demonstrate contrast injection into the cystic duct, prominence of the cystic duct is visualized, unremarkable opacification of the internal and extrahepatic ducts except for mild the narrowing visualized in the central bile duct, no evidence of filling defect is visualized, no mobile lucencies within the common bile duct to suggest stones. There is intra and extrahepatic biliary ductal dilatation. There is free passage into the duodenum. No evidence of contrast extravasation outside the biliary tree to suggest bile duct injury. RAD/Cholangiogram/ O R,Initial IMPRESSION: Narrowing of the central common bile duct with mild intra and extrahepatic biliary dilatation seen. Recommend correlation with operative report. Electronically Signed: Brenton Ivan MD at 8:39 EDT ,
--- NOTE | 2022-01-14 08:28 | PCM.OPRPT ---
Report of Operation Date of Procedure: 01/14/22 Pre-Operative Diagnosis: Chronic cholecystitis cholelithiasis Post-Operative Diagnosis: Same Surgery/Procedure Performed:: Laparoscopic cholecystectomy with cholangiography Description of Surgical Findings:: Timeout and informed consent was obtained. The patient was taken to the operating room placed upon the table and underwent general endotracheal intubation anesthesia. The abdomen was sterilely prepped and draped. IV antibiotic 2 g Ancef was administered. 0.5% Marcaine was used as a local anesthetic. Skin sites were preanesthetized. A vertical infraumbilical incision was created. Holding sutures of 0 Vicryl placed. Varies needle inserted. . The abdomen was insufflated with CO2 to a pressure of 10 mmHg pressure. 10 mm laparoscope inserted. The abdomen was inspected. 5 mm trochars were placed in the epigastrium, midabdomen, and right upper quadrant. The fundus of the gallbladder was distracted and blunt dissection was instituted at the infundibulum. Where needed hemostasis was obtained with hemoclips. The critical view was achieved with the cystic duct and cystic artery identified. Hem-o-torito clip was placed on the cystic duct incision in the cystic duct and a 14-gauge Angiocath was inserted to allow for placement of a cholangiogram catheter. Fluoroscopically controlled cholangiograms were obtained. This demonstrated normal flow into the duodenum. The cholangiogram catheter was removed and Hem-o-torito clip was placed on the cystic duct stump. The cystic duct was transected. Cystic artery was secured with hemolock clips proximally and distally. Electrocautery was used to dissect the gallbladder free from the liver bed. Complete hemostasis intact.. The gallbladder was placed in a retrieval bag. The right upper quadrant was irrigated and aspirated free of excess fluid. The abdomen was allowed to deflate through an antiviral valve. The gallbladder is exited at the umbilicus. The fascial defect was approximated with 0 Vicryl nlbjyr-ib-nhmzo suture. Skin edges were approximated with interrupted 4-0 Monocryl subdermal stitches. Steri-Strips Telfa OpSite dressings applied. Sponge and instrument and needle counts were reported the surgeon be correct. Specimens gallbladder. Drains none. Blood loss minimal. The patient was taken to the recovery room in satisfactory condition without apparent complication. Terry Forrest M.D., F.A.C.S. Surgeon: Terry Forrest Type of Anesthesia: General and Local Anesthesiologist: Theresa Oliva
[2022-01-14 08:43] VITALS: BP 142/80; BP 145/90; PULSE 68; RESP 16; TEMP 36.2; O2SAT 96
[2022-01-14 08:45] VITALS: BP 142/80; BP 146/79; PULSE 70; RESP 16; O2SAT 97
[2022-01-14 09:00] VITALS: BP 140/97; BP 142/80; PULSE 79; RESP 16; O2SAT 93
[2022-01-14 09:17] VITALS: BP 134/78; BP 142/80; PULSE 76; RESP 16; TEMP 36.2; O2SAT 93
[2022-01-14] MEDS: HYDROcodone Bitartrate/Apap 5/325 Tablet PO (09:36)
[2022-01-14 10:16] VITALS: BP 142/80; BP 157/77; PULSE 62; RESP 14; TEMP 36.3; O2SAT 94
== END 2022-01-14 10:22 | disposition home or self-care (01) ==
LOC: SDC 06:00 → AC 06:00
PROVIDERS: Anesthesiology; PCP Family Medicine; Referring Provider Surgery; Visit Provider Surgery
PROC: (CPT 47610; principal; 2022-01-14 07:10)
DX: K80.10 Calculus of gallbladder with chronic cholecystitis without obstruction (principal); I10 Essential (primary) hypertension; E03.9 Hypothyroidism, unspecified; M54.9 Dorsalgia, unspecified; G89.29 Other chronic pain; F17.210 Nicotine dependence, cigarettes, uncomplicated; Z79.890 Hormone replacement therapy; Z79.899 Other long term (current) drug therapy
CPT/HCPCS: 47563; 00790; 36415; 74300; 76000; 80048; 84132; 84443; 85027; 88304; 93005; J7120; J2405

== ENCOUNTER 2025-01-25 11:51 | Inpatient (IN) | payer MEDICARE, SELFPAY ==
[2025-01-25] VITALS (15 sets, daily range): BP systolic 184–255; BP diastolic 93–146; PULSE 56–92; RESP 10–21; TEMP 36.4–36.6; O2SAT 93–98; BMI 26.8
--- NOTE | 2025-01-25 11:55 | EKG12_ITS ---
Test Reason : GENERAL Blood Pressure : */* mmHG Vent. Rate : 59 BPM Atrial Rate : 59 BPM P-R Int : 166 ms QRS Dur : 96 ms QT Int : 438 ms P-R-T Axes : 43 -44 114 degrees QTcB Int : 433 ms Sinus bradycardia with Premature atrial complexes in a pattern of bigeminy Possible Left atrial enlargement Left axis deviation Minimal voltage criteria for LVH, may be normal variant ( [place] product ) Inferior infarct , age undetermined T wave abnormality, consider lateral ischemia Abnormal ECG Confirmed by JOVITA COKER ([id number]), editor farm journal OTTO DEE ([id number]) on 01/26/2025 1:50:46 PM Referred By: Confirmed By: JOVITA COKER
--- NOTE | 2025-01-25 11:55 | CT_ITS ---
PROCEDURE: STROKE BRAIN/HEAD WITHOUT CONT 01/25/2025 REASON FOR EXAM: NEURO DEFICIT, ACUTE, STROKE SUSPECTED TECHNIQUE: STROKE BRAIN/HEAD WITHOUT CONT Coronal and Sagittal reconstruction series were provided. One or more dose reduction techniques were used (e.g., Automated exposure control, adjustment of the mA and/or kV according to patient size, use of iterative reconstruction technique. RADIATION DOSE SUMMARY: CTDlvol: 44.99 mGy DLP: 796.11 mGycm COMPARISON: None FINDINGS: Age consistent periventricular and deep white matter changes without acute hemorrhage midline shift or mass effect. No suspicious pattern of edema. No skull fracture or scalp hematoma. Paranasal sinuses and globes are unremarkable CT/STROKE Brain/Head without Cont IMPRESSION: Age consistent changes, no acute abnormalities Reading Location: [id number]
--- NOTE | 2025-01-25 11:56 | CT_ITS ---
PROCEDURE: STROKE CTA HEAD AND NECK W/CON 01/25/2025 REASON FOR EXAM: NEURO DEFICIT, ACUTE, STROKE SUSPECTED TECHNIQUE: STROKE CTA HEAD AND NECK W/CON Multiplanar Sagittal and Coronal images were obtained. 3D post processing was performed CONTRAST: Isovue 370 VOLUME: 100 mL One or more dose reduction techniques were used (e.g., Automated exposure control, adjustment of the mA and/or kV according to patient size, use of iterative reconstruction technique). RADIATION DOSE SUMMARY: CTDlvol: 39.50 mGy DLP: 704.04 mGycm COMPARISON: CT brain from earlier today FINDINGS: Aortic Arch: Normal size and branching pattern. No significant atherosclerotic plaque. Brachiocephalic and Subclavians: Unremarkable RIGHT Carotid: Right CCA: Unremarkable. Right ICA: Unremarkable, aside from a tortuous course. Maximum stenosis (NASCET): 0 % Right ECA: Unremarkable. LEFT Carotid: Left CCA: Unremarkable. Left ICA: Unremarkable, aside from a tortuous course. Maximum stenosis (NASCET): 0 % Left ECA: Unremarkable. Vertebrals: Dominant left vertebral artery, no evidence of stenosis or significant atherosclerotic disease Anatomy: [place] anatomy is normal. Aneurysm or avm: None Anterior cerebral arteries: Unremarkable: Middle cerebral arteries: Unremarkable. Basilar artery: Unremarkable. Posterior cerebral arteries: Unremarkable. Other major branches of the posterior circulation: Unremarkable. Major venous structures: Unremarkable. No suspicious enhancing lesion, no airway narrowing or deviation. No suspicious adenopathy Extensive degenerative bony changes. Normal-appearing thyroid, lung apices are clear CT/STROKE CTA Head AND Neck W/Con IMPRESSION: No CTA evidence of carotid stenosis No CTA evidence of acute occlusive arterial disease. No significant stenosis Patent vertebral arteries No aneurysm or vascular malformation Tortuous ICAs No suspicious enhancing lesion airway narrowing or deviation Reading Location: [id number]
[2025-01-25 12:20] LABS: Hematocrit 53.1 % (37-47); Immature Granulocytes Count 0.020 X10^3/uL (0.0-0.0); Mean Corp Hgb Conc 35.4 g/dL (32-36); Mean Corpuscular Volume 88.5 fL (81-99); Mean Platelet Vol. 10.1 fl (6.2-12.0); NRBC Flagged by Analyzer 0 % (0-5); Platelet Count 223 K/mm3 (150-450); RBC Distribution Width CV 13.5 % (11.6-14.6); RBC Distribution Width SD 43.7 fl (35.1-43.9); Red Blood Count 6.00 M/mm3 (4.2-5.4); White Blood Count 7.3 K/mm3 (4.4-11.0)
--- NOTE | 2025-01-25 12:25 | EDS_ITS ---
HPI History of Present Illness Chief Complaint: Stroke Alert Informant: patient Onset/Context/Timing Onset: Days (3) Context: Sudden Onset Timing: Continuous Quality and Location: Positive for Right Arm Weakness Onset: 3 days ago Worsened by: Nothing Relieved by: Nothing Associated Symptoms Associated Symptoms: Negative for Headache, Nausea, Vomiting or Chest Pain Narrative Narrative: Patient presents with right-sided weakness that began 3 days ago. Patient states she had difficulty using her right arm. Patient states this has been constant for the past 3 days. Patient states that she has been having some difficulty with gait. Patient states she feels unsteady when she walks. Patient states that this has improved. Patient denies any difficulty swallowing. Patient denies any visual changes. Patient denies any headaches. [facility] Medical History Strain of rhomboid muscle Trapezius muscle strain Right shoulder strain Impacted cerumen, right ear Acute lumbar myofascial strain Wears glasses Alcohol use Diverticulosis Smoker History of stress test Abnormal CT scan Chronic constipation Internal hemorrhoid, bleeding Change in bowel habit Anxiety Hypothyroid HTN (hypertension) Home Medications ?Medication ?Instructions ?Recorded ?Last Taken ?Type NK 01/25/25 Unknown History Allergy/AdvReac Type Severity Reaction Status Date / Time paroxetine (From Paxil) Allergy Mild ALTERED Verified 01/25/25 14:06 SENSATION codeine AdvReac Mild HEADACHES Verified 01/25/25 14:06 fluoxetine (From Prozac) AdvReac Mild ALTERED Verified 01/25/25 14:06 SENSATION Surgical History History of cholecystectomy S/P laparoscopic cholecystectomy History of colonoscopy (~03/15/19) Status post carpal tunnel release Heel spur Traumatic plantar fasciitis Social History Smoking Status: Current every day smoker tobacco type: cigarettes alcohol intake: never ROS ROS ED Constitutional Constitutional ED: Denies chills or fever(s) Eyes Eyes: Denies blurry vision or change in vision ENT ENT ED: Denies rhinorrhea or sore throat Cardiovascular Cardiovascular: Denies chest pain or palpitations Respiratory/Chest Respiratory/Chest: Denies cough or dyspnea Gastrointestinal Gastrointestinal: Denies nausea or vomiting Genitourinary Genitourinary ED: Denies dysuria or hematuria Musculoskeletal Musculoskeletal: Denies back pain or neck pain Integumentary Denies abscess or rash Neurologic Neurologic: Reports weakness; Denies headache(s) Allergic/Immunologic Allergic/Immunologic ED: Denies mouth swelling or urticaria EXAM Physical Exam Const Vital Signs: 01/25/25 11:52 01/25/25 11:56 01/25/25 12:11 Temperature 97.8 F Temperature Source Temporal Pulse Rate 92 Respiratory Rate 16 Blood Pressure 247/146 H Blood Pressure Mean 179 Pulse Ox Oxygen Delivery Method Room Air 01/25/25 12:22 01/25/25 12:23 01/25/25 12:54 Temperature Temperature Source Pulse Rate 68 77 63 Respiratory Rate 19 H 10 L 21 H Blood Pressure 255/113 H 255/113 H 213/103 H Blood Pressure Mean 160 160 139 Pulse Ox 98 96 Oxygen Delivery Method 01/25/25 12:55 01/25/25 13:30 01/25/25 13:49 Temperature 97.8 F Temperature Source Pulse Rate 72 63 63 Respiratory Rate 15 19 H 19 H Blood Pressure 213/103 H 184/104 H 184/104 H Blood Pressure Mean 139 130 130 Pulse Ox 98 98 Oxygen Delivery Method 01/25/25 14:00 Temperature Temperature Source Pulse Rate 59 L Respiratory Rate 17 Blood Pressure 222/130 H Blood Pressure Mean 160 Pulse Ox 93 Oxygen Delivery Method Positive well nourished and well developed General Appearance ED: well developed and NAD HEENT Reports moist mucous membranes atraumatic Eyes EOMs intact bilaterally Neck supple and no JVD Resp normal respiratory effort and clear to auscultation bilaterally Cardio Rate: regular rate Rhythm: regular rhythm GI soft to palpation, non-tender and non-distended Neuro oriented x3, CN's II-XII intact bilaterally and no sensory deficits noted Neuro Narrative: There is mild drift of the right arm but she is able to hold it up for 10 seconds. Parker Coma Scale: document GCS findings Spontaneous Obeys Commands Oriented 15 Sensorium / Orientation: alert Speech: speech normal Motor Exam: strength abnormal Psych mental status grossly normal MDM MDM MDM Narrative Medical decision making narrative: Differential diagnosis includes stroke, electrolyte abnormality, intracranial bleeding, cardiac dysrhythmia, cardiac ischemia, hypertensive urgency, hypertensive emergency, and cervical radiculopathy. CT scan of the brain will be obtained to assess for stroke or intracranial bleeding. CTA of the head and neck will be obtained to assess for large vessel occlusion and carotid stenosis. EKG will be obtained to assess for cardiac dysrhythmia and cardiac ischemia. CBC will be obtained to assess for leukocytosis and anemia. Basic metabolic profile will be obtained to assess for electrolyte abnormality and renal function. High-sensitivity troponin will be obtained to assess for cardiac ischemia. 2-hour repeat high-sensitivity troponin will be obtained to assess for ongoing cardiac ischemia. PT with INR and PTT will be obtained to assess for coagulopathy. History & Record Review Additional record(s) reviewed:: Prior outpatient record and Prior labs Lab Data Attestation: I reviewed the patient's lab results. Lab results narrative: CBC was reviewed. Hemoglobin is elevated at 18.8 and hematocrit was 53.1. The remainder is within normal limits. Basic metabolic profile was reviewed and was within normal limits. PT with INR and PTT were reviewed and were within normal limits. Initial high-sensitivity troponin was reviewed and was normal at 11. 2-hour repeat high-sensitivity troponin was reviewed and was normal at 13. Labs: Laboratory Results - last 24 hr 01/25/25 01/25/25 01/25/25 11:55 12:10 14:09 WBC 7.3 RBC 6.00 H Hgb 18.8 H* Hct 53.1 H MCV 88.5 MCH 31.3 MCHC 35.4 RDW Std Deviation 43.7 RDW Coeff of Gladis 13.5 Plt Count 223 MPV 10.1 Immature Gran % (Auto) 0.300 Neut % (Auto) 50.3 Lymph % (Auto) 36.9 Rock % (Auto) 8.0 Eos % (Auto) 3.4 Baso % (Auto) 1.1 H Absolute Neuts (auto) 3.7 Absolute Lymphs (auto) 2.68 Nucleated RBC % 0 PT 13.7 INR 1.0 APTT 34.9 Sodium 141 Potassium 3.5 Chloride 103 Carbon Dioxide 22.9 Anion Gap 15 BUN 11 Creatinine 0.93 Estim Creat Clear Calc 59.21 Est GFR (MDRD) Non-Af 67 BUN/Creatinine Ratio 12.1 Glucose 98 Calcium 9.7 Troponin T High Sens 11 Troponin T Hi Sens 2 Hr 13 POC Glucose 98 Radiography Diagnostic Testing: Clinical Impression(s) from Imaging Studies Brain CT 01/25/25 11:55 IMPRESSION: Age consistent changes, no acute abnormalities Reading Location: [facility] Head/Neck CTA 01/25/25 11:56 IMPRESSION: No CTA evidence of carotid stenosis No CTA evidence of acute occlusive arterial disease. No significant stenosis Patent vertebral arteries No aneurysm or vascular malformation Tortuous ICAs No suspicious enhancing lesion airway narrowing or deviation Reading Location: [facility] CT scan of the brain was obtained. There is no acute intracranial abnormality. There are some chronic changes noted. This was interpreted by the radiologist and was also independently reviewed by myself. CTA of the head and neck was obtained. There is no evidence of carotid s tenosis. There is no large vessel occlusion noted. There is no vertebral stenosis. There is no aneurysm or AVM. This was interpreted by the radiologist and was also independently reviewed by myself. EKG Initial EKG: Attestation: I personally reviewed and interpreted this EKG as follows: Interpretation: Sinus Bradycardia (With atrial bigeminy) and Non-Specific ST Changes (There is voltage criteria for left ventricular hypertrophy and nonspecific T wave changes.) Comments: EKG was obtained. On my independent interpretation, it showed a sinus bradycardia with frequent PACs and atrial bigeminy pattern with a rate of 59. MO interval, QRS interval, and QTc intervals were all normal. There is left axis deviation at -44. There are nonspecific ST-T wave changes. Prior EKG tracings: available for review Prior: Unchanged Management Discussion w/another healthcare provider: Hospitalist, Cash Processing Specialist and Radiologist Treatment and Re-Evaluation Narrative: Patient was given a dose of labetalol here. Patient's blood pressure improved to 184/104. Patient was advised of her findings. Patient was advised of the need for further evaluation for possible stroke. Patient is agreeable for admission. Case was discussed with the hospitalist. She will admit the patient to her service. Patient and family understood and were agreeable with the plan. All questions were answered. Discharge Plan Dx/Rx/DC Orders Clinical Impression: Right arm weakness, Gait disturbance Disposition Disposition: Acute Care Hospital [facility] Discharge Date/Time: 01/25/25 15:04 NIHSS NIHSS 1a. Level of Consciousness: 0 - Alert; keenly responsive 1b. LOC Questions: 0 - Answers BOTH questions correctly 1c. LOC Commands: 0 - Performs BOTH tasks correctly 2. Best Gaze: 0 - Normal 3. Visual: 0 - No visual loss 4. Facial Palsy: 0 - Normal symmetrical movements 5a. Left Arm: 0 - No drift; arm holds 90 (or 45) degrees for full 10 seconds 5b. Right Arm: 1 - Drift; arm drifts downward but doesn?t hit the bed 6a. Left Le - No drift; leg holds 30-degree position for full 5 seconds 6b. Right Le - No drift; leg holds 30-degree position for full 5 seconds 9. Best Language: 0 - No aphasia; normal 10. Dysarthria: 0 - Normal Total: 1 Stroke Questions Stroke Team Activated: Yes Reviewed Inclusion/Exclusion criteria: Yes IV Thrombolytic Administered: No No contraindications from thrombolytic administration: No
[2025-01-25 12:27] LABS: Hemoglobin 18.8 g/dL (12.0-15.0)
[2025-01-25 12:37] LABS: Prothrombin Time (Protime)PT. 13.7 SECONDS (11.7-14.9)
[2025-01-25 12:38] LABS: Partial Thromboplast Time 34.9 Seconds (24.1-36.2)
[2025-01-25 12:43] LABS: Anion Gap 15 (5-15); BUN 11 mg/dL (4-19); BUN/Creat Ratio 12.1 RATIO (10-20); Calcium,Total 9.7 mg/dL (7.6-11.0); Carbon Dioxide 22.9 mmol/L (21.0-32.0); Chloride 103 mmol/L (98-108); Estimated Creatinine Clearance 59.21 ml/min (50-250); Glucose 98 mg/dL (70-99); Potassium 3.5 mmol/L (3.3-5.1); Troponin T High Sensitivity 11 ng/L (<=14)
--- NOTE | 2025-01-25 14:35 | PCM.HP.STD ---
HPI - General General Date of Admission: 01/25/25 Date of Service: 01/25/25 Chief Complaint: Right sided weakness and hand incoordination HPI Narrative NIGHAT VILLANUEVA, is a 69-year-old female history of anxiety and hypertension presented [facility] ED 01/25/2025 with right arm weakness that began 3 days ago. In the ED temp 97.8, heart rate 92 and blood pressure 247/146, respiratory rate 19 and pulse ox 98% on room air. CBC with a hemoglobin of 18.8, normal white blood cell count, BMP within normal limits and negative troponin. CT brain and CT head and neck no acute process or LVO, hospitalist contacted for admission for CVA rule out. Patient evaluated bedside. She reports Thursday night she developed right leg and arm weakness and right arm incoordination w/ difficulty ambulating. Progressively symptoms improved and almost resolved aside from a little right arm weakness until this morning. Pt reports when she woke up she was stumbling into izquierdo and had right hand weakness/incoordination and right leg weakness, she also feels she is having difficulty with her speech. She feels symptoms are getting worse and not improving. Slight headache now. Denies any fevers at home, no neck pain, no changes in vision, no chest pain or shortness of breath. Denies any sensory changes. Struggles chronically with constipation but nothing new. Patient reports that 4 years ago she was on a medicine for her thyroid (Synthroid) and 2 blood pressure medications but stopped those and is trying to go the natural route without conventional medications. Is not taking any thyroid supplementation. [facility] Medical History (Updated 01/25/25 @ 14:[address] Yohan Hewitt, ) Abnormal CT scan Acute lumbar myofascial strain Alcohol use Anxiety Change in bowel habit Chronic constipation Diverticulosis History of stress test HTN (hypertension) Hypothyroid Impacted cerumen, right ear Internal hemorrhoid, bleeding Right shoulder strain Smoker Strain of rhomboid muscle Trapezius muscle strain Wears glasses Home Medications ?Medication ?Instructions ?Recorded ?Last Taken ?Type NK 01/25/25 Unknown History Allergy/AdvReac Type Severity Reaction Status Date / Time paroxetine (From Paxil) Allergy Mild ALTERED Verified 01/25/25 14:06 SENSATION codeine AdvReac Mild HEADACHES Verified 01/25/25 14:06 fluoxetine (From Prozac) AdvReac Mild ALTERED Verified 01/25/25 14:06 SENSATION Surgical History (Updated 01/25/25 @ 14:10 by Gissel Willingham) Heel spur History of cholecystectomy History of colonoscopy (~03/15/19) S/P laparoscopic cholecystectomy Status post carpal tunnel release Traumatic plantar fasciitis Social History Smoking Status: Current every day smoker tobacco type: cigarettes alcohol intake: never ROS ROS Narrative General: Denies fever/chills HENT: Slight headache, denies stuffy nose, denies sore throat, some speech changes EYES: Denies changes in vision Resp: Denies cough, denies shortness of breath Cardiac: Denies chest pain GI: Denies abdominal pain, some chronic constipation, denies nausea/vomiting : Denies changes in urination Extremity: Denies swelling MSK: Weakness in right upper and lower extremities Neuro: Denies any numbness/tingling, right arm coordination problems Heme: Denies any bleeding or bruising Skin: Denies rashes Psychiatric: No complaints voiced Vital Signs Vital Signs Vital Signs: 01/25/25 11:52 01/25/25 11:56 01/25/25 12:11 Temperature 97.8 F Temperature Source Temporal Pulse Rate 92 Respiratory Rate 16 Blood Pressure 247/146 H Blood Pressure Mean 179 Pulse Ox Oxygen Delivery Method Room Air 01/25/25 12:22 01/25/25 12:23 01/25/25 12:54 Temperature Temperature Source Pulse Rate 68 77 63 Respiratory Rate 19 H 10 L 21 H Blood Pressure 255/113 H 255/113 H 213/103 H Blood Pressure Mean 160 160 139 Pulse Ox 98 96 Oxygen Delivery Method 01/25/25 12:55 01/25/25 13:30 01/25/25 13:49 Temperature 97.8 F Temperature Source Pulse Rate 72 63 63 Respiratory Rate 15 19 H 19 H Blood Pressure 213/103 H 184/104 H 184/104 H Blood Pressure Mean 139 130 130 Pulse Ox 98 98 Oxygen Delivery Method 01/25/25 14:00 Temperature Temperature Source Pulse Rate 59 L Respiratory Rate 17 Blood Pressure 222/130 H Blood Pressure Mean 160 Pulse Ox 93 Oxygen Delivery Method Weight Weight: 75.296 kg Body Mass Index (BMI) 26.8 Physical Exam Narrative General: Alert, oriented, no apparent distress HEENT: Atraumatic, does have some facial droop on the right lower face Eyes: Anicteric, normal conjunctiva, extraocular movements intact, pupils equal Neck: Supple Respiratory: Clear to auscultation bilaterally, normal respiratory effort Cardiovascular: Regular rate and rhythm GI: Soft, nontender, nondistended Extremities: No edema Musculoskeletal: Strength 4 out of 5 in right upper extremity, 5 out of 5 left upper extremity, 2- out of 5 right lower extremity, 5 out of 5 left lower extremity Neuro: Right lower face with slight facial droop otherwise cranial nerves II through XII intact, difficulty with [id number] with right hand, no difficulty on left Skin: No rashes appreciated Psych: Cooperative Results Lab / Micro Data 01/25/25 12:10 01/25/25 12:10 Labs: Laboratory Results - last 24 hr 01/25/25 12:10: WBC 7.3, RBC 6.00 H, Hgb 18.8 H*, Hct 53.1 H, MCV 88.5, MCH 31.3, MCHC 35.4, RDW Std Deviation 43.7, RDW Coeff of Gladis 13.5, Plt Count 223, MPV 10.1, Immature Gran % (Auto) 0.300, Neut % (Auto) 50.3, Lymph % (Auto) 36.9, [place] % (Auto) 8.0, Eos % (Auto) 3.4, Baso % (Auto) 1.1 H, Absolute Neuts (auto) 3.7, Absolute Lymphs (auto) 2.68, Nucleated RBC % 0, PT 13.7, INR 1.0, APTT 34.9, Sodium 141, Potassium 3.5, Chloride 103, Carbon Dioxide 22.9, Anion Gap 15, BUN 11, Creatinine 0.93, Estim Creat Clear Calc 59.21, Est GFR (MDRD) Non-Af 67, BUN/Creatinine Ratio 12.1, Glucose 98, Calcium 9.7, Troponin T High Sens 11 Imaging Radiology Impression Brain CT 01/25/25 11:55 IMPRESSION: Age consistent changes, no acute abnormalities Reading Location: [id number] Head/Neck CTA 01/25/25 11:56 IMPRESSION: No CTA evidence of carotid stenosis No CTA evidence of acute occlusive arterial disease. No significant stenosis Patent vertebral arteries No aneurysm or vascular malformation Tortuous ICAs No suspicious enhancing lesion airway narrowing or deviation Reading Location: [id number] Assessment & Plan Assessment/Plan (1) Right arm weakness: PLAN: Plan # Right-sided weakness -Patient initially had symptoms on Thursday night of right-sided weakness and difficulty walking, symptoms almost resolved but she woke up with them again today -Not currently a candidate for intervention given last known well was technically Thursday and patient woke up with current symptoms -On my exam patient has some mild right lower facial droop, difficulty with [id number] with right hand and some mild weakness in right upper extremity and her right leg she can move with some effort against gravity -Exam certainly concerning for CVA -Admit to tele -CT head w/ no acute process -CTA head and neck no acute process or LVO -MRI ordered -NIH q4hr -asa, statin -Echo -PT/OT/Speech eval -Teleneuro consult ordered -Hold BP medications to allow for permissive hypertension for 24 hours unless SBP greater than 220 or DBP greater than 120 or until stroke is ruled out - Given patient's symptoms returned with last known well this time of last night still feel it is reasonable to allow for permissive hypertension # Hypertensive urgency versus emergency - Management as above - Suspect symptoms are due to CVA - Monitor closely -Will likely need to be restarted on antihypertensives on discharge - Will check TSH - Echo as above #Hypothyroidism -Patient reports stopping her Synthroid for years ago -Will check thyroid studies #Tobacco use -Advise cessation - Nicotine patch ordered # Documented history of anxiety - Does not appear to be on any medications at this time - Outpatient follow-up if necessary #DVT ppx: SCDs Jillian Rodriguez MD Charges/Coding Visit Charges Inpatient E&M: 18009 Init Hosp L2
[2025-01-25 14:37] LABS: Troponin T High Sens 2 HR 13 ng/L (<=14)
--- NOTE | 2025-01-25 15:02 | ECHOCS_ITS ---
Reason For Study Reason For Study: TIA/CVA Procedure This was a 2D Doppler, Color Flow transthoracic echocardiogram. The study was technically difficult. Contrast injection was performed. Exam performed portable in patient room. Left Ventricle Normal LV size. Left ventricular systolic function is normal. The left ventricular ejection fraction is 65 %. Normal diastology for age. No regional wall motion abnormalities noted. Right Ventricle Normal RV size. Normal systolic function. Atria Normal left atrium. Normal right atrium. Bubble contrast study is negative for PFO/ASD. Mitral Valve Mild mitral annular calcification. Tricuspid Valve Normal tricuspid valve. Unable to estimate RV systolic pressure due to insufficient tricuspid regurgitant envelope. Aortic Valve Trisinus/trileaflet aortic valve. Mild focal aortic valve calcification. Trivial aortic valve insufficiency. Pulmonic Valve Normal pulmonic valve. Great Vessels Aortic root size upper limits of normal. Pericardium/Pleural No pericardial effusion. Medication Diluted definity 1.5ml given slow IV push to enhance endocardial definition. Performed a rapid injection of agitated mix of 9 cc saline and 1cc air to assess for atrial septal defect. MMode/2D Measurements & Calculations LVIDd: 4.4 cm IVSd: 1.0 cm Ao root diam: 4.0 cm LVIDs: 2.7 cm LVPWd: 0.96 cm FS: 38.6 % LAV(MOD-bp): 62.3 ml LVAd ap4: 30.7 cm2 SV(MOD-sp4): 68.4 ml LAV(MOD-bp) Indexed: 33.8 ml/m2 LVLd ap4: 7.4 cm SI(MOD-sp4): 37.1 ml/m2 LAV(MOD-sp2): 60.7 ml EDV(MOD-sp4): 103.3 ml LAV(MOD-sp4): 61.0 ml EDV(sp4-el): 107.7 ml LVAs ap4: 16.2 cm2 LVLs ap4: 6.3 cm ESV(MOD-sp4): 34.9 ml ESV(sp4-el): 35.4 ml EF(MOD-sp4): 66.2 % EF(sp4-el): 67.1 % SV(sp4-el): 72.3 ml LA A4 area: 19.4 cm2 LA dimension(2D): 3.2 cm TAPSE: 2.0 cm Time Measurements MV dec time: 0.38 sec Doppler Measurements & Calculations MV E max tommy: 64.3 cm/sec Lat Peak E' Tommy: 6.6 cm/sec Med Peak E' Tommy: 4.3 cm/sec MV A max tommy: 128.0 cm/sec E/E' lat: 9.7 E/E' med: 14.9 MV E/A: 0.50 MV V2 max: 162.1 cm/sec MV P1/2t max tommy: 94.1 cm/sec Ao V2 max: 162.3 cm/sec MV max P.5 mmHg MV P1/2t: 131.5 msec Ao max P.5 mmHg MV V2 mean: 73.7 cm/sec Ao V2 mean: 108.5 cm/sec MV mean P.7 mmHg MV dec slope: 209.8 cm/sec2 Ao mean P.4 mmHg MV V2 VTI: 35.8 cm MVA(P1/2t): 1.7 cm2 Ao V2 VTI: 35.6 cm LV V1 max: 127.5 cm/sec PA V2 max: 96.9 cm/sec LV V1 max P.5 mmHg ECHO/Echo Complete W/ Contrast Interpretation Summary The left ventricular ejection fraction is 65 %. Mild mitral annular calcification. Mild focal aortic valve calcification. Contrast injection was performed. Ordering Physician: Jillian Rodriguez Performed By: Antoni Jason RCS
[2025-01-25 16:19] LABS: Free T3 3.0 pg/mL (2.18-3.98)
--- NOTE | 2025-01-25 17:00 | MRI_ITS ---
PROCEDURE: MRI BRAIN WITHOUT CONTRAST 01/25/2025 REASON FOR EXAM: SUSPECTED CVA, RIGHT SIDED WEAKNESS TECHNIQUE: Multiplanar and multisequential MRI of the brain was performed without contrast. COMPARISON: CT head/angiography earlier same day 01/25/2025. FINDINGS: Small focus of restricted diffusion compatible with acute infarct in the lateral left thalamic nucleus. No additional areas of recent infarct are present. Mild generalized brain parenchymal volume loss, and chronic small-vessel ischemic-gliotic changes elsewhere throughout the supratentorial white matter. Additional small foci of chronic lacunar infarcts versus prominent perivascular spaces in the bilateral basal ganglia. No acute intracranial hemorrhage, extra-axial collection, or mass-effect. There is a nonspecific punctate focus of remote microhemorrhage in the right cerebellar hemisphere. Major intracranial vascular flow voids appear preserved. Grossly unremarkable orbits. Well-aerated paranasal sinuses and bilateral mastoid air cells. MRI/Brain without Contrast IMPRESSION: 1. Small focus of acute infarct in the lateral left thalamic nucleus. 2. Mild volume loss and chronic small-vessel ischemic-gliotic changes elsewhere . 3. No acute hemorrhage, extra-axial collection, or mass-effect. Reading Location: [id number]
[2025-01-25 17:21] LABS: Troponin T High Sens 4 HR 12 ng/L (<=14)
[2025-01-25] MEDS: 0.9% Normal Saline (1000mL) 1,000 ML 75 ML IV (17:49)
[2025-01-25] MEDS: Nicotine (PBKC) 14 MG Patch TD (17:49)
--- NOTE | 2025-01-25 18:26 | CT_ITS ---
PROCEDURE: CT BRAIN/HEAD WITHOUT CONTRAST 01/25/2025 REASON FOR EXAM: WORSE NIH SINCE MRI, VERIFY NO HEMORRHAGIC TRASFMN TECHNIQUE: CT BRAIN/HEAD WITHOUT CONTRAST Coronal and Sagittal reconstruction series were provided. One or more dose reduction techniques were used (e.g., Automated exposure control, adjustment of the mA and/or kV according to patient size, use of iterative reconstruction technique. RADIATION DOSE SUMMARY: CTDlvol: 44.99 mGy DLP: 796.11 mGycm COMPARISON: Brain MRI/CT exams earlier same day 01/25/2025. FINDINGS: No acute intracranial hemorrhage, extra-axial collection, mass-effect, or acute territorial infarct. Small focus of acute infarct in the lateral left thalamus is not well appreciated on this exam, as depicted on the recent MRI. Mild chronic microangiopathic changes. Normal ventricular caliber. Unremarkable orbits. Intact skull base and calvarium. Well-aerated sinuses and mastoids. CT/Brain/Head without Contrast IMPRESSION: No acute intracranial hemorrhage, mass-effect or territorial infarct. Small fo cus of acute infarct in the left thalamus is better depicted on the recent brain MRI. Reading Location: [id number]
[2025-01-26] VITALS (15 sets, daily range): BP systolic 161–217; BP diastolic 85–117; PULSE 60–79; RESP 16–22; TEMP 36.2–36.8; O2SAT 96–97; BMI 26.8
[2025-01-26] MEDS: Nicotine (PBKC) 14 MG Patch TD (07:53)
[2025-01-26 08:42] LABS: Mucous, Urine 0 SEEN /hpf (<or=2+); Red Blood Cells-Urine 0 SEEN /hpf (0-5)
[2025-01-26 09:16] LABS: Color, Urine Yellow (Yellow); Glucose, Dipstick Normal (Normal); Ketone-Dipstick 50 mg/dl (Negative); Leukocyte Esterase-Dipstick Negative /ul (Negative); Nitrite-Dipstick Negative (Negative); Occult Blood-Urine 10 /ul (Negative); Protein-Dipstick 30 mg/dl (Negative); Specific Gravity, Urine 1.020 (1.002-1.030); Urine Bilirubin Dipstick Negative (Negative)
--- NOTE | 2025-01-26 09:18 | PCM.PN.HOSP ---
Subjective Subjective MRI with an acute infarct in the left lateral thalamic nucleus with right sided deficits Objective Data Objective Data Vital Signs: Vital Signs Temp Pulse Resp BP Pulse Ox O2 Del Method 97.1 F L 74 18 178/117 H 96 Room Air 01/26/25 07:48 01/26/25 07:48 01/26/25 07:48 01/26/25 07:48 01/26/25 07:48 01/26/25 08:12 Oxygen Delivery Method Room Air Weight: 166 lb 0.129 oz Body Mass Index (BMI) 26.8 Intake & Output: Intake and Output for Last 24 Hours 01/25/25 01/26/25 01/27/25 03:59 03:59 03:59 Intake Total 1000 / 1000 Balance 1000 / 1000 Lab / Micro Data 01/25/25 12:10 01/25/25 12:10 Labs: Laboratory Results - last 24 hr 01/25/25 11:55: POC Glucose 98 01/25/25 12:10: WBC 7.3, RBC 6.00 H, Hgb 18.8 H*, Hct 53.1 H, MCV 88.5, MCH 31.3, MCHC 35.4, RDW Std Deviation 43.7, RDW Coeff of Gladis 13.5, Plt Count 223, MPV 10.1, Immature Gran % (Auto) 0.300, Neut % (Auto) 50.3, Lymph % (Auto) 36.9, [place] % (Auto) 8.0, Eos % (Auto) 3.4, Baso % (Auto) 1.1 H, Absolute Neuts (auto) 3.7, Absolute Lymphs (auto) 2.68, Nucleated RBC % 0, PT 13.7, INR 1.0, APTT 34.9, Sodium 141, Potassium 3.5, Chloride 103, Carbon Dioxide 22.9, Anion Gap 15, BUN 11, Creatinine 0.93, Estim Creat Clear Calc 59.21, Est GFR (MDRD) Non-Af 67, BUN/Creatinine Ratio 12.1, Glucose 98, Calcium 9.7, Troponin T High Sens 11 01/25/25 14:09: Troponin T Hi Sens 2 Hr 13, Free T4 1.40, Free T3 pg/dL 3.0 01/25/25 16:45: Troponin T Hi Sens 4Hr 12 01/26/25 08:28: Urine Color Yellow, Urine Clarity Sl. Cloudy, Urine pH 6.0, Ur Specific [place] 1.020, Urine Protein 30 H, Urine Glucose (UA) Normal, Urine Ketones 50 H, Urine Occult Blood 10 H, Urine Nitrite Negative, Urine Bilirubin Negative, Urine Urobilinogen 1 H, Ur Leukocyte Esterase Negative Radiography Diagnostic Testing: Radiology Impression Brain CT 01/25/25 11:55 IMPRESSION: Age consistent changes, no acute abnormalities Reading Location: [facility] Head/Neck CTA 01/25/25 11:56 IMPRESSION: No CTA evidence of carotid stenosis No CTA evidence of acute occlusive arterial disease. No significant stenosis Patent vertebral arteries No aneurysm or vascular malformation Tortuous ICAs No suspicious enhancing lesion airway narrowing or deviation Reading Location: [facility] Brain MRI 01/25/25 17:00 IMPRESSION: 1. Small focus of acute infarct in the lateral left thalamic nucleus. 2. Mild volume loss and chronic small-vessel ischemic-gliotic changes elsewhere. 3. No acute hemorrhage, extra-axial collection, or mass-effect. Reading Location: [facility] Brain CT 01/25/25 18:26 IMPRESSION: No acute intracranial hemorrhage, mass-effect or territorial infarct. Small focus of acute infarct in the left thalamus is better depicted on the recent brain MRI. Reading Location: [facility] Physical Exam Narrative General: Alert, Oriented x3, Cooperative, No apparent distress HEENT: Atraumatic, PERRLA, EOMI, Normocephalic Oral: Moist Mucosa Neck: Supple, No JVD Lungs: Diminished, Normal air movement, No rhonchi, No wheeze, No rales Cardiovascular: Regular rate, Regular Rhythm, Normal S1, Normal S2, No murmurs Abdomen: Soft, Non Tender, Non-Distended, No Hepato-splenomegaly Extremities: No edema, Capillary Refill Less than 3 Seconds Skin: No rashes, No breakdown Musculoskeletal: No Tenderness to Palpation of Joints or Extremities Neurological: Her right arm is paralyzed with no effort against gravity, her right leg has some effort, she does have a slight facial palsy and decreased sensation. Left side is unremarkable and normal Psych/Mental Status: Normal Affect, Appropriate Assessment & Plan Assessment/Plan (1) Right arm weakness: PLAN: Plan 1. 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 She presented to the hospital with significantly elevated blood pressures because she took herself off of all of her medications and followed a homeopathic route ? Oddly enough her thyroid hormones are normal ? Urine studies demonstrate protein in the urine therefore we will initiate her on lisinopril therapy and likely add Norvasc therapy as well given that her heart rate is in the low 60s at baseline we will hold off of the beta-pelon if possible ? Will likely need placement on discharge, PT/OT ? Will consult case management ? Awaiting evaluation by neurology ?Echocardiogram is also pending ? Continue with statin therapy as well as an aspirin 2. History of hypothyroidism ? She stopped taking medications 4 years ago ? T3 and T4 are normal, no TSH was obtained however given these levels are normal would just recommend outpatient monitoring DVT: SCDs Charges/Coding Visit Charges Inpatient E&M: 64366 Subs Hosp L2 NIHSS NIHSS Nursing Documentation NIHSS Nursing Documentation: NIHSS: Ischemic Stroke/TIA Start: 01/25/25 15:16 Text: For PCU Patients: NIH and Neuro Check every 4 Status: Active hours, PRN and with change in RN caregiver. Freq: [id number] Protocol: Activity Type Activity Date Activity User E-sign Co-sign Detail Recorded Client Recorded Date Recorded By Document 01/26/25 07:44 NC desktop 01/26/25 07:45 NC 01/26/25 07:44 NIH Stroke Scale [NIHSS] A score of 0 is normal or asymptomatic . Total possible score is 42. Inpatient: RN or Physician to activate a stroke alert for onset of new stroke symptoms or with NIHSS increase >/= 3 points. Following change in neurological status, NIHSS will be performed per physician order or more frequently PRN. -1a. Level of Consciousness 0 - Alert; keenly responsive -1b. LOC Questions 0 - Answers BOTH questions correctly -1c. LOC Commands 1 - Performs ONE task correctly -2. Best Gaze 0 - Normal -3. Visual 0 - No visual loss -4. Facial Palsy 1 - Minor paralysis ( flattened nasolabial fold , asymmetry on smiling) -5a. Left Arm 1 - Drift; arm drifts downward but doesn?t hit the bed -5b. Right Arm 1 - Drift; arm drifts downward but doesn?t hit the bed -6a. Left Leg 0 - No drift; leg holds 30- degree position for full 5 seconds -6b. Right Leg 1 - Drift; leg falls by the end of 5- seconds, but does not hit bed -7. Limb Ataxia 2 - Present in 2 limbs -8. Sensory 0 - Normal; no sensory loss -9. Best Language 0 - No aphasia; normal -10. Dysarthria 1 = Mild-to- moderate dysarthria; -11. Extinction and Inattention 0 - No abnormality -Total 8 Query Text:A score of 0 is normal or asymptomatic. Total possible score is 42 . ED: Notify Physician for NIHSS increase by > / = 3 points. Inpatient: RN or Physician to activate a stroke alert for NIHSS increase of > / = 3 points. Coma Scale [Assess] -Eye Opening Spontaneous -Motor Obeys Commands -Verbal Oriented [Total] -Coma Scale Total 15
[2025-01-26 09:38] LABS: Squamous Epithelial Cells - UA 0-5 SEEN /hpf (5-10)
--- NOTE | 2025-01-26 12:10 | CM.UR ---
Social Work Pt had a stroke, PHQ-9 completed, pt scored a 0, no indication of depression at this time. No resources given at this time. NAUN Madrigal
--- NOTE | 2025-01-26 12:17 | SP.MBSS_ITS ---
Modified Barium Swallow Patient Information Study Date: 01/26/25 Study Time: 10:10 Direct Billable Minutes: 95 Total Minutes procedure & reportin Diagnosis: Left thalamic nucleus CVA Referring Physician: Jan Clifton Reason for Referral: Objectively assess swallow function, assess risk for aspiration, and determine recommendations for least restrictive diet textures and compensatory strategies to improve safety of swallow. Medical History: The patient presented to [facility] ED 01/25/2025 with right arm weakness that began [address] brain and CT head and neck no acute process or LVO, hospitalist contacted for admission for CVA rule out. Patient reports Thursday night she developed right leg and arm weakness and right arm incoordination w/ difficulty ambulating. Progressively symptoms improved and almost resolved aside from a little right arm weakness until the morning of admission. Pt reports waking up on the day of admission, stumbling into izquierdo, R hand and leg weakness, and difficulty w/ speech. Brain MRI 01/25/2025: IMPRESSION: 1. Small focus of acute infarct in the lateral left thalamic nucleus. 2. Mild volume loss and chronic small-vessel ischemic-gliotic changes elsewhere. 3. No acute hemorrhage, extra- axial collection, or mass-effect. ST consulted during the acute stay as part of CVA work up. [employer] completed speech production and cognitive-linguistic assessment today w/ findings of mild dysarthria and mild cognitive-communication deficit. During speech and language assessments, the patient had coughing w/ liquids and PH[employer]GR[employer] SCREW[employer]KER recommended this MBSS to further assess concerns for aspiration. [id number], [place], present for MBSS. Medical History (Updated 01/25/25 @ 14:[address] Yohan Hewitt, DO) Abnormal CT scan Acute lumbar myofascial strain Alcohol use Anxiety Change in bowel habit Chronic constipation Diverticulosis History of stress test HTN (hypertension) Hypothyroid Impacted cerumen, right ear Internal hemorrhoid, bleeding Right shoulder strain Smoker Strain of rhomboid muscle Trapezius muscle strain Wears glasses Current Diet Ordered: Regular textures / Thin liquids Dentition: Natural Teeth Mental Status: Impaired Respiratory Status: Oxygenating on Room Air Penetration-Aspiration Scale Penetration-Aspiration Scale: OBJECTIVE ASSESSMENT OF SWALLOW FUNCTION (QUANTITATIVE ? PER TRIAL): PENETRATION / ASPIRATION SCALE (SANTOS): 1 = does not enter airway 2 = enters airway/above vocal folds/ejected 3 = enters airway/above vocal folds/not ejected 4 = enters airway/contacts vocal folds/ejected 5 = enters airway/contacts vocal folds/not ejected 6 = enters airway/below vocal folds/ejected 7 = enters airway/below vocal folds/not ejected despite effort 8 = enters airway/below vocal folds/no effort VIDEOFLOROSCOPIC SCALE SCORE (SANTOS): Grade I = aspiration of material that has penetrated into the laryngeal vestibule, intact cough reflex Grade II = aspiration < 10 % of the bolus, intact cough reflex Grade III = aspiration of < 10 % of the bolus, reduced cough reflex or aspiration of > 10 % of the bolus, intact cough reflex Grade IV = aspiration of > 10 % of the bolus, reduced cough reflex Penetration-Aspiration Scale Score Thin Liquid via teaspoon: Result: 5= enters airways/contacts vocal folds/not ejected Thin Liquid via teaspoon Effortful swallow: Result: 5= enters airways/contacts vocal folds/not ejected Thin Liquid via teaspoon Breath hold and hard swallow: Result: 2= enter airway/above vocal folds/ejected Thin Liquid via small single sip: cup Breath hold and hard swallow: Result: 2= enter airway/above vocal folds/ejected [place] Thick Liquid via small single sip: cup: Result: 2= enter airway/above vocal folds/ejected Pudding via teaspoon: Result: 1= does not enter airway Comment: Esophageal screen - Mild retention in the middle esophagus. 1/2 Cookie: Result: 1= does not enter airway Comment: Esophageal screen - Retention in the middle and lower esophagus. Thin Liquid via small single sip: cup Breath hold and hard swallow Trial 2: Result: 8= enters airway/below vocal folds/no effort Comment: Esophageal screen - Liquid wash somewhat cleared cookie retention from the middl e and lower esophagus. Thin Liquid via single sip: straw Breath hold and hard swallow: Result: 7= enters airways/below vocal folds/not ejected despite effort Comment: Esophageal screen - Second liquid wash mostly cleared cookie retention through the esophagus. Thin Liquid via small single sip: cup Supraglottic swallow: Result: 5= enters airways/contacts vocal folds/not ejected Thin Liquid via small single sip: cup Chin tuck: Result: 7= enters airways/below vocal folds/not ejected despite effort Thin Liquid via small single sip: cup Right head turn: Result: 1= does not enter airway Thin Liquid via small single sip: cup Right head turn Trial 2: Result: 1= does not enter airway Oral Phase Labial Seal: No Labial Escape Tongue Control During Bolus Hold: Posterior escape of greater than half of bolus Bolus Preparation/Mastication: Slow prolonged chewing/mashing with complete recollection Bolus Transport/Lingual Motion: Slowed tongue motion Oral Residue: Residue collection on oral structures Pharyngeal Phase Initiation of Pharyngeal Swallow: Bolus head in pyriforms Soft Palate Elevation: Trace column of contrast/air between soft palate and pharyngeal wall Laryngeal Elevation: Partial superior movement thyroid cart/partial apprx aryt- epig petiole Anterior Hyoid Excursion: Partial anterior movement Epiglottic Movement: Partial inversion Laryngeal Vestibule Closure at Height of Swallow: Incomplete; narrow column of air/contrast in laryngeal vestibule Pharyngeal Stripping Wave: Present - diminished Pharyngoesophageal Segment Opening: Parital distension and partial duration; parital obstruction of flow Tongue Base Retraction: Wide column of contrast between tongue base & post. pharyngeal wall Pharyngeal Residue: Collection of residue within or on pharyngeal structures Esophageal Phase Esophageal Clearance: Esophageal retention Diagnosis/Impression Diagnosis: Moderate oropharyngeal dysphagia R13.12 MBS Impressions: Anterior, bony protrusions C3-C4, which appeared to negatively impact epiglottic inversion. The oral phase is primarily marked by... -Decreased bolus control w/ premature posterior loss of >1/2 of some thin liquid trials to the pyriform sinuses prior to swallow onset. First thin by tsp trial spilled to the vocal folds prior to swallow onset. -Slowed mastication of cookie. -Slowed tongue motion for A-P transport. -Mild oral residue of cookie, which fully cleared w/ independent initiation of a second swallow. The pharyngeal phase is primarily marked by... -Delayed initiation of the pharyngeal swallow. -Decreased pharyngeal motility d/t decreased TB retraction, pharyngeal stripping wave, and UES opening/duration w/ moderate pharyngeal residue, which mostly cleared w/ independent initiation of a second swallow. -Decreased airway closure due to decreased laryngeal elevation, poor anterior hyoid excursion, and partial epiglottic inversion w/ overt aspiration of thin liquid via straw w/ breath hold and hard swallow (modified supraglottic) and thin liquids via cup w/ chin tuck. Silent aspiration of thin liquids via cup w/ a modified supraglottic swallow. The esophageal phase is primarily marked by... -Retention of cookie in the middle and lower esophagus, which mostly cleared w/ two liquid washes. Recommendations Diet: Regular Textures and Thin Liquids Compensatory Strategies: Small Bites, Small Sips, Slow Rate, Multiple Swallows, Right head turn when swallowing (ALL SIPS), Alternate bites/solids and sips/liquids and Sitting upright (During and 30-60min after po intake) Supervision: Distant Supervision Recommend Repeat Modified Barium Swallow: Yes (Repeat in ~2 weeks after implem entation of oropharyngeal exercise program to re-assess aspiration risk and determine necessity of R head turn w/ liquids. Consider GI consult if persisting esophageal deficits w/ repeat MBSS.) Need for Skilled Speech Therapy Services: Yes Comment: -Train the patient in strategies to decrease risk for aspiration and reflux aspiration. -Ongoing assessment of diet tolerance. -Training in oropharyngeal exercise program, including lingual resistance, [place]el[place], Fani, effortful, and CTAR. Education Completed: 1. Described result of evaluation. Status Active ST Patient: Active Contact Information [facility] Speech Therapy:: Sabrina Biggs M.A. [facility]-[employer] Speech-Language Pathologist [facility] [address] [place] [address] [email or web address] [phone]
--- NOTE | 2025-01-26 12:17 | CASEMGMT ---
Discharge Planning A list of?RU providers including quality and resource use data and consistent with the patient's preferred geographic region, medical needs, and insurance network was created in [employer] Guide.? This list was provided to the RN MONTRELL. Evelin Tyler, Discharge Planning Asst.
--- NOTE | 2025-01-26 12:28 | CASEMGMT ---
RN?CM?ASSESSMENT ? RN?CM?to room to meet with patient for initial transition planning/care coordination?assessment.?RN?CM?introduced self and role at [facility].? Pt voices understanding and consents to?assessment?at this time.? Pt sitting up in chair in room in no distress at this time.? Daughter, Jessie, in room visiting and pt agreeable to her being present during assessment. Pt is A/O at this time and answers all questions appropriately.?? Care providers, pharmacy, and demographics verified/updated at this time. ? Strata:1 PCP: Dr John or Dr Davenport. Pt states they are both in the same office and she is not sure which one is considered her PCP, stating it has been about 3 years since last appt. Specialists: none Preferred Pharmacy: [facility] Retail Insurance: [employer] [facility] Prescription Benefit:?yes LNOK: SonHerb. DtrJessie Living Arrangements: Lives alone in 2-story home. Bedroom and full bathroom on 2nd floor. There is also a full bathroom on main floor and pt states she could do FFSU if needed. Independent w/ADL's and IADL's prior to admission. Transportation:?Patient drives. DME: ? Denies using any DME. She does have a tub seat, BSC, and FWW available. HHC/SNF: No hx of either. ? Discussed discharge planning. Pt states she would like to go somewhere for rehab. Discussed differences b/w RU and SNF's. Pt states she prefers a RU for more extensive therapy. She would like to go to [facility] RU as 1st choice & declined wanting list of other RU options unless [facility] RU unable to accept. Dtr, Jessie, did request a list to review now in case [facility] RU unable to accept. RU list that was prepared by Evelin, discharge business banking sales assistant, given to Jessie @ this time. Pt and Jessie voice no further concerns/needs at this time.? ? PLAN:? RU ? Hanh BSN?RN?CM
--- NOTE | 2025-01-26 12:50 | CHAPLAIN ---
Type of Pastoral Visit _x__ Initial Visit ___ Follow-up Visit ___ On-call Visit ___ General Patient Visit ___ Spiritual Assessment ___ Family Conference ___ Bereavement ___ Rapid Response ___ Code Blue ___ Other (describe below) Pastoral Care Referral From _x__ Patient ___ Family ___ Nurse ___ Physician ___ Canvas Cutter Hand ___ Sales Broker ___ Other (describe below) Sacrament/Intervention _x__ Active listening ___ Anointing ___ Voodoo ___ Bereavement ___ Communion ___ Emelyn exploration ___ ___ Life review ___ Prayer ___ Reconciliation ___ Sacrament of Sick _x__ Supportive presence ___ Wedding ___ Other (describe below) Pastoral Comments patient acknowledges the unexpected turn of events for her health and how she is responding to it; daughter is in the room; a son may also be coming today; pt speaks of having to do therapy and will hopefully stay at [facility] Rehab unit for further help; pt says that she is coping as best that she can and denies further worries or other needs; offer of ongoing support given to the patient if she will be staying here
--- NOTE | 2025-01-26 13:59 | CASEMGMT ---
Addendum entered by Eri Cisneros 01/26/25 17:16: Dr Clifton made aware of below information. Dr Clifton states he feels pt is medically ready for discharge and to proceed with looking into pt going to another RU. Addendum entered by Denise Larson 01/26/25 14:33: Social Work SW spoke w/Lana from rehab, she states Dr. Martin reviewed the pt, does not think pt is medically ready so is not ready to give an answer on acceptance. Once pt is medically ready or close to being ready she will review. SW updated CM, message left. NAUN Madrigal Original Note: Social Work SW did make referral to the inpt rehab, Lana will let this SHOSHANA or Eri know if pt would be accepted. SHOSHANA will continue to follow. NAUN Madrigal
--- NOTE | 2025-01-26 17:11 | STROKE.CONS ---
Assessment and Plan: Stroke Assessment/Plan NIGHAT VILLANUEVA, is a 69 F who is suppose to take medicine for HTN and thyroid but was not who presents right sided weakness. She has had waxing and waning right sided weakness and numbness for 4 days. Eventually day of admission got worse so came in to the ed. CTH/CTA neg. MRI brain to me shows a left internal capsulse acute ischemic stroke, read as thalamic. TTE neg. SBP was high on admission 190-200. Stroke likely hypertensive. There is debate if internal capsule strokes can be embolic. Cont with BP control to normotensive, cont ASA 81mg, cont high intensity statin, cv risk factor optimization. 30d event monitor at dc. f/u with pcp and neuro after dc. Please reachout for any questions or concerns, no further recs. HPI Consult Data Date of Consult: 01/26/25 HPI Narrative HPI Narrative: NIGHAT VILLANUEVA, is a 69 F who is suppose to take medicine for HTN and thyroid but was not who presents right sided weakness. She has had waxing and waning right sided weakness and numbness for 4 days. Eventually day of admission got worse so came in to the ed. CTH/CTA neg. MRI brain to me shows a left internal capsulse acute ischemic stroke, read as thalamic. TTE neg. SBP was high on admission 190-200. Stroke likely hypertensive. There is debate if internal capsule strokes can be embolic. Cont with BP control to normotensive, cont ASA 81mg, cont high intensity statin, cv risk factor optimization. 30d event monitor at dc. f/u with pcp and neuro after dc. [facility] Medical History Strain of rhomboid muscle Trapezius muscle strain Right shoulder strain Impacted cerumen, right ear Acute lumbar myofascial strain Wears glasses Alcohol use Diverticulosis Smoker History of stress test Abnormal CT scan Chronic constipation Internal hemorrhoid, bleeding Change in bowel habit Anxiety Hypothyroid HTN (hypertension) Home Medications ?Medication ?Instructions ?Recorded ?Last Taken ?Type NK 01/25/25 Unknown History Allergy/AdvReac Type Severity Reaction Status Date / Time paroxetine (From Paxil) Allergy Mild ALTERED Verified 01/25/25 14:06 SENSATION codeine AdvReac Mild HEADACHES Verified 01/25/25 14:06 fluoxetine (From Prozac) AdvReac Mild ALTERED Verified 01/25/25 14:06 SENSATION Surgical History History of cholecystectomy S/P laparoscopic cholecystectomy History of colonoscopy (~03/15/19) Status post carpal tunnel release Heel spur Traumatic plantar fasciitis Social History Smoking Status: Current every day smoker tobacco type: cigarettes alcohol intake: never Vital Signs Vital Signs Vital Signs: 01/25/25 17:59 01/25/25 19:00 01/25/25 20:42 Temperature 97.7 F L Temperature Source Oral Pulse Rate 56 L 58 L Pulse Strength Normal (2+) Respiratory Rate 16 Respiratory Effort Respiratory Depth Respiratory Pattern Blood Pressure 218/95 H Blood Pressure Mean 136 Blood Pressure Source Monitor Blood Pressure Position Semi-Fowlers Blood Pressure Location Left Arm Pulse Ox 96 Oxygen Delivery Method Room Air 01/25/25 21:18 01/25/25 22:47 01/26/25 00:52 Temperature 97.6 F L Temperature Source Temporal Pulse Rate 60 60 64 Pulse Strength Respiratory Rate 16 Respiratory Effort Respiratory Depth Respiratory Pattern Blood Pressure 238/93 H 210/105 H 203/109 H Blood Pressure Mean 141 140 Blood Pressure Source Monitor Monitor Blood Pressure Position Blood Pressure Location Pulse Ox 98 Oxygen Delivery Method Room Air 01/26/25 01:38 01/26/25 02:00 01/26/25 05:31 Temperature 97.5 F L 97.8 F Temperature Source Temporal Temporal Pulse Rate 66 68 Pulse Strength Respiratory Rate 22 H 16 Respiratory Effort Respiratory Depth Respiratory Pattern Blood Pressure 206/85 H 161/92 H Blood Pressure Mean 125 115 Blood Pressure Source Monitor Monitor Blood Pressure Position Supine Blood Pressure Location Pulse Ox 97 97 97 Oxygen Delivery Method Room Air Room Air Room Air 01/26/25 07:48 01/26/25 08:07 01/26/25 08:08 Temperature 97.1 F L Temperature Source Temporal Pulse Rate 74 Pulse Strength Normal (2+) Respiratory Rate 18 Respiratory Effort Normal Non-Labored Respiratory Depth Normal Respiratory Pattern Normal Blood Pressure 178/117 H Blood Pressure Mean 137 Blood Pressure Source Monitor Blood Pressure Position Semi-Fowlers Blood Pressure Location Left Arm Pulse Ox 96 Oxygen Delivery Method Room Air Room Air 01/26/25 08:12 01/26/25 11:44 01/26/25 12:47 Temperature 97.8 F Temperature Source Oral Pulse Rate 60 Pulse Strength Respiratory Rate 18 Respiratory Effort Respiratory Depth Respiratory Pattern Blood Pressure 217/89 H Blood Pressure Mean 131 Blood Pressure Source Monitor Blood Pressure Position Sitting Blood Pressure Location Left Arm Pulse Ox 97 97 Oxygen Delivery Method Room Air Room Air 01/26/25 13:27 01/26/25 15:15 Temperature 97.7 F L Temperature Source Oral Pulse Rate 60 Pulse Strength Respiratory Rate 18 Respiratory Effort Respiratory Depth Respiratory Pattern Blood Pressure 212/100 H 196/92 H Blood Pressure Mean 137 126 Blood Pressure Source Monitor Monitor Blood Pressure Position Semi-Fowlers Semi-Fowlers Blood Pressure Location Left Arm Left Arm Pulse Ox 97 Oxygen Delivery Method Room Air Weight Weight: 75.3 kg Body Mass Index (BMI) 26.8 EEG Results Procedure Details EEG Procedure Details: NIGHAT VILLANUEVA is a 69 year old F with a past medical history of , who presents for evaluation of Electroencephalogram on DATE at TIME Physical Exam Narrative - General: NAD, pleasant, cooperative, well nourished, well developed - Head/Eyes: Atraumatic, normocephalic, clear cornea, normal sclera/conjunctive - Neuro: ? Mental Status: AAOX4 & following simple commands. ? Speech: Clear and fluent with good repetition, comprehension, & naming. No aphasia or dysarthria ? CN II: Visual bridges are full to confrontation. ? CN III, IV, : EOMI, no gaze preference, no nystagmus, no ptosis ? CN V: Facial sensation is intact to light touch throughout. ? CN VII: right facial droop. ? CN VII: Hearing is grossly normal to conversational speech. ? Motor: Right arm drift to bed, rest can sustain ? Sensation: Normal to light touch bilaterally. ? Coordination: Normal FTN & HTS. No abn movements seen. right arm not testable NIH 3 ? Lab / Micro Data 01/25/25 12:10 01/25/25 12:10 Labs: Laboratory Results - last 24 hr 01/25/25 16:45: Troponin T Hi Sens 4Hr 12 01/26/25 08:28: Urine Color Yellow, Urine Clarity Sl. Cloudy, Urine pH 6.0, Ur Specific [place] 1.020, Urine Protein 30 H, Urine Glucose (UA) Normal, Urine Ketones 50 H, Urine Occult Blood 10 H, Urine Nitrite Negative, Urine Bilirubin Negative, Urine Urobilinogen 1 H, Ur Leukocyte Esterase Negative, Urine RBC 0 SEEN, Urine WBC 0 SEEN, Ur Squamous Epith Cells 0-5 SEEN, Urine Bacteria 1+, Urine Mucus 0 SEEN Imaging Radiology Impression Echocardiogram 01/25/25 15:02 Interpretation Summary The left ventricular ejection fraction is 65 %. Mild mitral annular calcification. Mild focal aortic valve calcification. Contrast injection was performed. Ordering Physician: Jillian Rodriguez Performed By: Antoni Jason RCS Brain MRI 01/25/25 17:00 IMPRESSION: 1. Small focus of acute infarct in the lateral left thalamic nucleus. 2. Mild volume loss and chronic small-vessel ischemic-gliotic changes elsewhere. 3. No acute hemorrhage, extra-axial collection, or mass-effect. Reading Location: [facility] Brain CT 01/25/25 18:26 IMPRESSION: No acute intracranial hemorrhage, mass-effect or territorial infarct. Small focus of acute infarct in the left thalamus is better depicted on the recent brain MRI. Reading Location: [facility] Active Medications Active Medications Active Medications: Current Medications Generic Name Dose Route Start Last Admin Trade Name Freq PRN Reason Stop Dose Admin Acetaminophen 650 mg 01/25/25 15:16 Acetaminophen 325 Mg Tablet PO Q6H PRN PRN Pain 1-10 Or Fever >100.7 Albuterol Sulfate 2.5 mg 01/25/25 15:16 Albuterol 2.5 Mg/3 Ml Vial.Neb. INHALATION Q2H PRN PRN SOB &/OR WHEEZING Amlodipine Besylate 10 mg 01/27/25 10:00 Amlodipine 10 Mg Tablet PO DAILY NIECY Protocol Aspirin 81 mg 01/26/25 08:00 01/26/25 07:53 Aspirin 81 Mg Tab.Chew PO 81 mg BREAKFAST NIECY Administration Atorvastatin Calcium 80 mg 01/25/25 22:00 01/25/25 21:21 Atorvastatin Calcium 80 Mg Tablet PO 80 mg QHS NIECY Administration Sodium Chloride 250 mls @ 15 mls/hr 01/25/25 15:27 IV .[id number] PRN Saline Flush Sodium Chloride 250 mls @ 15 mls/hr 01/25/25 15:27 IV .[id number] PRN Additional IVPB Infusion Lisinopril 10 mg 01/26/25 10:00 01/26/25 11:59 Lisinopril 10 Mg Tablet PO 10 mg DAILY NIECY Administration Protocol Lorazepam 0.5 mg 01/25/25 15:16 Lorazepam 0.5 Mg Tablet PO X1 PRN Anxiety with MRI Melatonin 10 mg 01/25/25 15:16 Melatonin 3 Mg Tablet PO QHS PRN PRN INSOMNIA Nicotine 14 mg 01/25/25 15:16 01/26/25 07:53 Nicotine (Pbkc) 14 Mg Patch TD 14 mg DAILY NIECY Administration Ondansetron HCl 4 mg 01/25/25 15:16 01/26/25 11:59 Ondansetron 4 Mg/2 Ml Vial IV 4 mg Q8H PRN PRN Administration NAUSEA/VOMITING Senna/Docusate Sodium 2 tablet 01/25/25 15:16 Senna/Docusate Sodium 1 Tablet PO BID PRN PRN Constipation Sodium Chloride 10 - 40 ml 01/25/25 15:27 0.9% Saline Lock 10 Ml Syringe IV UD PRN SALINE FLUSH NIHSS NIHSS Nursing Documentation NIHSS Nursing Documentation: NIHSS: Ischemic Stroke/TIA Start: 01/25/25 15:16 Text: For PCU Patients: NIH and Neuro Check every 4 Status: Active hours, PRN and with change in RN caregiver. Freq: [id number] Protocol: Activity Type Activity Date Activity User E-sign Co-sign Detail Recorded Client Recorded Date Recorded By Document 01/26/25 15:15 KS desktop 01/26/25 15:15 KS 01/26/25 15:15 NIH Stroke Scale [NIHSS] A score of 0 is normal or asymptomatic . Total possible score is 42. Inpatient: RN or Physician to activate a stroke alert for onset of new stroke symptoms or with NIHSS increase >/= 3 points. Following change in neurological status, NIHSS will be performed per physician order or more frequently PRN. -1a. Level of Consciousness 0 - Alert; keenly responsive -1b. LOC Questions 0 - Answers BOTH questions correctly -1c. LOC Commands 1 - Performs ONE task correctly -2. Best Gaze 0 - Normal -3. Visual 0 - No visual loss -4. Facial Palsy 1 - Minor paralysis ( flattened nasolabial fold , asymmetry on smiling) -5a. Left Arm 3 - No effort against gravity ; arm falls -5b. Right Arm 1 - Drift; arm drifts downward but doesn?t hit the bed -6a. Left Leg 0 - No drift; leg holds 30- degree position for full 5 seconds -6b. Right Leg 1 - Drift; leg falls by the end of 5- seconds, but does not hit bed -7. Limb Ataxia 2 - Present in 2 limbs -8. Sensory 0 - Normal; no sensory loss -9. Best Language 0 - No aphasia; normal -10. Dysarthria 0 - Normal -11. Extinction and Inattention 0 - No abnormality -Total 9 Query Text:A score of 0 is normal or asymptomatic. Total possible score is 42 . ED: Notify Physician for NIHSS increase by > / = 3 points. Inpatient: RN or Physician to activate a stroke alert for NIHSS increase of > / = 3 points. Coma Scale [Assess] -Eye Opening Spontaneous -Motor Obeys Commands -Verbal Oriented [Total] -Coma Scale Total 15
[2025-01-26 22:52] LABS: Cholesterol 150 mg/dL (<=200); Low Density Lipoprotein Calc. 82 mg/dL; Magnesium 2.0 mg/dL (1.5-2.2); Triglycerides 115 mg/dL; Very Low Density Lipoprotein 23 mg/dL (5-40); cholesterol:hdl ratio screen 3.33
[2025-01-27] VITALS (14 sets, daily range): BP systolic 182–238; BP diastolic 83–106; PULSE 62–108; RESP 16–18; TEMP 36.4–36.8; O2SAT 94–98; BMI 26.8
[2025-01-27] MEDS: Nicotine (PBKC) 14 MG Patch TD (10:15)
--- NOTE | 2025-01-27 11:23 | PCM.PN.HOSP ---
Subjective Subjective No issues overnight, maintaining her current levels of debility with no movement in her right arm and right leg drift Objective Data Objective Data Vital Signs: Vital Signs Temp Pulse Resp BP Pulse Ox O2 Del Method 98.0 F 62 18 189/86 H 98 Room Air 01/27/25 04:08 01/27/25 05:27 01/27/25 07:30 01/27/25 07:30 01/27/25 04:08 01/27/25 10:58 Oxygen Delivery Method Room Air Weight: 166 lb 0.129 oz Body Mass Index (BMI) 26.8 Intake & Output: Intake and Output for Last 24 Hours 01/26/25 01/27/25 01/28/25 03:59 03:59 03:59 Intake Total 1800 / 1800 Balance 1800 / 1800 Lab / Micro Data 01/25/25 12:10 01/25/25 12:10 Labs: Laboratory Results - last 24 hr 01/25/25 16:45: Magnesium 2.0, Triglycerides 115, Cholesterol 150, LDL Cholesterol, Calc 82, VLDL Cholesterol 23, HDL Cholesterol 45, Cholesterol/HDL Ratio 3.33, TSH 3.690 Radiography Diagnostic Testing: Radiology Impression Echocardiogram 01/25/25 15:02 Interpretation Summary The left ventricular ejection fraction is 65 %. Mild mitral annular calcification. Mild focal aortic valve calcification. Contrast injection was performed. Ordering Physician: Jillian Rodriguez Performed By: Antoni Jason RCS Physical Exam Narrative General: Alert, Oriented x3, Cooperative, No apparent distress HEENT: Atraumatic, PERRLA, EOMI, Normocephalic Oral: Moist Mucosa Neck: Supple, No JVD Lungs: Diminished, Normal air movement, No rhonchi, No wheeze, No rales Cardiovascular: Regular rate, Regular Rhythm, Normal S1, Normal S2, No murmurs Abdomen: Soft, Non Tender, Non-Distended, No Hepato-splenomegaly Extremities: No edema, Capillary Refill Less than 3 Seconds Skin: No rashes, No breakdown Musculoskeletal: No Tenderness to Palpation of Joints or Extremities Neurological: Her right arm is paralyzed with no effort against gravity, her right leg has some effort, she does have a slight facial palsy and decreased sensation. Left side is unremarkable and normal Psych/Mental Status: Normal Affect, Appropriate Assessment & Plan Assessment/Plan (1) Right arm weakness: PLAN: Plan 1. 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 She presented to the hospital with significantly elevated blood pressures because she took herself off of all of her medications and followed a homeopathic route ? Oddly enough her thyroid hormones are normal ?Given protein in her urine, continue with lisinopril and Norvasc. As she is likely chronically severely hypertensive will not make any more significant changes as she should have this gradually lowered, not acutely lowered ? Continue with as needed hydralazine ? Will likely need placement on discharge, PT/OT ? Will consult case management ? Awaiting evaluation by neurology ?Echocardiogram with an EF of 65% ? Continue with statin therapy as well as an aspirin ? Currently awaiting acceptance at a rehab or SNF as she is medically stable for discharge ? Speech therapy performed a modified barium swallow recommending regular textures and thin liquids with small bites and small sips as compensatory mechanisms 2. History of hypothyroidism ? She stopped taking medications 4 years ago ? T3 and T4 are normal, no TSH was obtained however given these levels are normal would just recommend outpatient monitoring DVT: SCDs Charges/Coding Visit Charges Inpatient E&M: 11320 Subs Hosp L2 NIHSS NIHSS Nursing Documentation NIHSS Nursing Documentation: NIHSS: Ischemic Stroke/TIA Start: 01/25/25 15:16 Text: For PCU Patients: NIH and Neuro Check every 4 Status: Active hours, PRN and with change in RN caregiver. Freq: [id number] Protocol: Activity Type Activity Date Activity User E-sign Co-sign Detail Recorded Client Recorded Date Recorded By Document 01/27/25 07:30 pcu 01/27/25 07:47 01/27/25 07:30 NIH Stroke Scale [NIHSS] A score of 0 is normal or asymptomatic . Total possible score is 42. Inpatient: RN or Physician to activate a stroke alert for onset of new stroke symptoms or with NIHSS increase >/= 3 points. Following change in neurological status, NIHSS will be performed per physician order or more frequently PRN. -1a. Level of Consciousness 0 - Alert; keenly responsive -1b. LOC Questions 0 - Answers BOTH questions correctly -1c. LOC Commands 0 - Performs BOTH tasks correctly -2. Best Gaze 0 - Normal -3. Visual 0 - No visual loss -4. Facial Palsy 1 - Minor paralysis ( flattened nasolabial fold , asymmetry on smiling) -5a. Left Arm 0 - No drift; arm holds 90 ( or 45) degrees for full 10 seconds -5b. Right Arm 3 - No effort against gravity ; arm falls -6a. Left Leg 1 - Drift; leg falls by the end of 5- seconds, but does not hit bed -6b. Right Leg 1 - Drift; leg falls by the end of 5- seconds, but does not hit bed -7. Limb Ataxia 2 - Present in 2 limbs -8. Sensory 1 - Mild-to- moderate sensory loss; -9. Best Language 0 - No aphasia; normal -10. Dysarthria 1 = Mild-to- moderate dysarthria; -11. Extinction and Inattention 0 - No abnormality -Total 10 Query Text:A score of 0 is normal or asymptomatic. Total possible score is 42 . ED: Notify Physician for NIHSS increase by > / = 3 points. Inpatient: RN or Physician to activate a stroke alert for NIHSS increase of > / = 3 points. Coma Scale [Assess] -Eye Opening Spontaneous -Motor Obeys Commands -Verbal Oriented [Total] -Coma Scale Total 15
--- NOTE | 2025-01-27 13:27 | CASEMGMT ---
Addendum entered by Jessie Trevino Raman 01/27/25 15:30: EITAN STOCK received call back from Jessie and states first choice is [facility] and second choice is [facility]. Jessie requested updates when available, phone [phone]. Discharge professor of forest planning updated to send referral to [facility] and [facility], awaiting response. CM will continue to follow this patient and plan for a safe discharge. Original Note: RN MONTRELL reached out to [facility] to check on status of referral per Dr Mario Schwartz is declining patient at this time. RN CM updated hospiatlist. RN CM in to updated patient, patient called daughter Jessie on cell phone. RN CM updated patient and daughter that [facility] had declined patient and inquired if they had reviewed Acute Rehab list. Jessie states that their next preferred facility is [facility]. Jessie wanted to reach out to her brother Kelvin to confirm preference. EITAN STOCK provided direct number for Jessie to call and update this RN CM. CM will continue to follow this patient and plan for a safe discharge.
[2025-01-27 13:41] LABS: Hematocrit 51.9 % (37-47)
[2025-01-27 13:44] LABS: Hemoglobin 18.3 g/dL (12.0-15.0)
--- NOTE | 2025-01-27 14:02 | CASEMGMT ---
Discharge Planning RU referral sent to [facility]. Evelin Tyler DC Planning Asst.
[2025-01-27] MEDS: 0.9% Normal Saline (1000mL) 1,000 ML 100 ML IV (14:07)
--- NOTE | 2025-01-27 14:34 | CASEMGMT ---
Addendum entered by Evelin Tyler 01/31/25 08:33: [facility] accepted and has submitted for precert. Requested clinical updates sent. Evelin Tyler DC Planning Asst. Original Note: Discharge Planning RU referral sent to [facility]. Evelin Tyler DC Planning Asst.
--- NOTE | 2025-01-27 16:14 | CASEMGMT ---
EITAN STOCK received notification from [facility] that they are able to accept patient. CM requested precert to be submitted. [facility] did not want to provide weekend numbers until precert obtained. MONTRELL requested [facility] to call the floor with auth and weekend numbers. EITAN STOCK called and updated daughter Jessie of acceptance.
[2025-01-28] VITALS (8 sets, daily range): BP systolic 190–202; BP diastolic 85–110; PULSE 88–104; RESP 16–18; TEMP 36.5–37.4; O2SAT 94–96; BMI 26.8
[2025-01-28] MEDS: 0.9% Normal Saline (1000mL) 1,000 ML 100 ML IV (01:35)
[2025-01-28 05:53] LABS: Hematocrit 49.8 % (37-47); Hemoglobin 17.2 g/dL (12.0-15.0); Immature Granulocytes Count 0.060 X10^3/uL (0.0-0.0); Mean Corp Hgb Conc 34.5 g/dL (32-36); Mean Corpuscular Volume 89.4 fL (81-99); Mean Platelet Vol. 10.1 fl (6.2-12.0); NRBC Flagged by Analyzer 0 % (0-5); Platelet Count 251 K/mm3 (150-450); RBC Distribution Width CV 14.3 % (11.6-14.6); RBC Distribution Width SD 46.6 fl (35.1-43.9); Red Blood Count 5.57 M/mm3 (4.2-5.4); White Blood Count 14.2 K/mm3 (4.4-11.0)
[2025-01-28 06:58] LABS: Anion Gap 12 (5-15); BUN 16 mg/dL (4-19); BUN/Creat Ratio 22.6 RATIO (10-20); Calcium,Total 8.7 mg/dL (7.6-11.0); Carbon Dioxide 20.4 mmol/L (21.0-32.0); Chloride 108 mmol/L (98-108); Estimated Creatinine Clearance 68.84 ml/min (50-250); Glucose 108 mg/dL (70-99); Potassium 3.3 mmol/L (3.3-5.1)
[2025-01-28] MEDS: Nicotine (PBKC) 14 MG Patch TD (08:56)
--- NOTE | 2025-01-28 11:49 | PN.HOSP_ITS ---
Subjective Subjective No issues overnight, blood pressure is improved slightly Objective Data Objective Data Vital Signs: Vital Signs Temp Pulse Resp BP Pulse Ox O2 Del Method 98.0 F 89 18 195/97 H 94 Room Air 01/28/25 08:50 01/28/25 08:50 01/28/25 08:50 01/28/25 08:50 01/28/25 08:50 01/28/25 10:00 Oxygen Delivery Method Room Air Weight: 166 lb 0.129 oz Body Mass Index (BMI) 26.8 Intake & Output: Intake and Output for Last 24 Hours 01/27/25 01/28/25 01/29/25 03:59 03:59 03:59 Intake Total 1800 / 1800 1000 / 1000 948.33 / 948.33 Output Total 350 / 350 150 / 150 Balance 1800 / 1800 650 / 650 798.33 / 798.33 Lab / Micro Data 01/28/25 05:32 01/28/25 05:32 Labs: Laboratory Results - last 24 hr 01/25/25 12:10: Hemoglobin A1c Cancelled 01/27/25 12:57: POC Glucose 125 H 01/27/25 13:30: Hgb 18.3 H*, Hct 51.9 H 01/28/25 05:32: WBC 14.2 H, RBC 5.57 H, Hgb 17.2 H, Hct 49.8 H, MCV 89.4, MCH 30.9, MCHC 34.5, RDW Std Deviation 46.6 H, RDW Coeff of Gladis 14.3, Plt Count 251, MPV 10.1, Immature Gran % (Auto) 0.400, Neut % (Auto) 68.1, Lymph % (Auto) 21.6, [place] % (Auto) 8.5, Eos % (Auto) 0.8, Baso % (Auto) 0.6, Absolute Neuts (auto) 9.7 H, Absolute Lymphs (auto) 3.08, Nucleated RBC % 0, Sodium 140, Potassium 3.3, Chloride 108, Carbon Dioxide 20.4 L, Anion Gap 12, BUN 16, Creatinine 0.70, Estim Creat Clear Calc 68.84, Est GFR (MDRD) Non-Af 94, BUN/Creatinine Ratio 22.6 H, Glucose 108 H, Calcium 8.7 Physical Exam Narrative General: Alert, Oriented x3, Cooperative, No apparent distress HEENT: Atraumatic, PERRLA, EOMI, Normocephalic Oral: Moist Mucosa Neck: Supple, No JVD Lungs: Diminished, Normal air movement, No rhonchi, No wheeze, No rales Cardiovascular: Regular rate, Regular Rhythm, Normal S1, Normal S2, No murmurs Abdomen: Soft, Non Tender, Non-Distended, No Hepato-splenomegaly Extremities: No edema, Capillary Refill Less than 3 Seconds Skin: No rashes, No breakdown Musculoskeletal: No Tenderness to Palpation of Joints or Extremities Neurological: Her right arm is paralyzed with minimal effort against gravity, her right leg has some effort, she does have a slight facial palsy and decreased sensation. Left side is unremarkable and normal Psych/Mental Status: Normal Affect, Appropriate Assessment & Plan Assessment/Plan (1) Right arm weakness: PLAN: Plan 1. 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 She presented to the hospital with significantly elevated blood pressures because she took herself off of all of her medications and followed a homeopathic route ? Oddly enough her thyroid hormones are normal ?Given protein in her urine, continue with lisinopril and Norvasc. As she is likely chronically severely hypertensive will not make any more significant changes as she should have this gradually lowered, not acutely lowered ? Continue with as needed hydralazine ? Will likely need placement on discharge, PT/OT ? Will consult case management ? Awaiting evaluation by neurology ?Echocardiogram with an EF of 65% ? Continue with statin therapy as well as an aspirin ? She has been accepted to [place] [facility], will await pre-CERT ? Speech therapy performed a modified barium swallow recommending regular textures and thin liquids with small bites and small sips as compensatory mechanisms 2. History of hypothyroidism ? She stopped taking medications 4 years ago ? T3 and T4 are normal, no TSH was obtained however given these levels are normal would just recommend outpatient monitoring 3. Concern for possible polycythemia ? Regardless she is already being treated with aspirin and will continue with IV fluids ? An erythropoietin level is pending however this does not delay discharge ? Given the improvement with IV fluid she is likely hemoconcentrated DVT: SCDs Charges/Coding Visit Charges Inpatient E&M: 14437 Subs Hosp L2 NIHSS NIHSS Nursing Documentation NIHSS Nursing Documentation: NIHSS: Ischemic Stroke/TIA Start: 01/25/25 15:16 Text: For PCU Patients: NIH and Neuro Check every 4 Status: Complete hours, PRN and with change in RN caregiver. Freq: [id number] Protocol: Activity Type Activity Date Activity User E-sign Co-sign Detail Recorded Client Recorded Date Recorded By Document 01/27/25 13:03 pcu 01/27/25 13:04 01/27/25 13:03 NIH Stroke Scale [NIHSS] A score of 0 is normal or asymptomatic . Total possible score is 42. Inpatient: RN or Physician to activate a stroke alert for onset of new stroke symptoms or with NIHSS increase >/= 3 points. Following change in neurological status, NIHSS will be performed per physician order or more frequently PRN. -1a. Level of Consciousness 0 - Alert; keenly responsive -1b. LOC Questions 0 - Answers BOTH questions correctly -1c. LOC Commands 0 - Performs BOTH tasks correctly -2. Best Gaze 0 - Normal -3. Visual 0 - No visual loss -4. Facial Palsy 2 - Partial paralysis ( total or near- total paralysis of lower face) -5a. Left Arm 0 - No drift; arm holds 90 ( or 45) degrees for full 10 seconds -5b. Right Arm 3 - No effort against gravity ; arm falls -6a. Left Leg 0 - No drift; leg holds 30- degree position for full 5 seconds -6b. Right Leg 1 - Drift; leg falls by the end of 5- seconds, but does not hit bed -7. Limb Ataxia 2 - Present in 2 limbs -8. Sensory 1 - Mild-to- moderate sensory loss; -9. Best Language 0 - No aphasia; normal -10. Dysarthria 1 = Mild-to- moderate dysarthria; -11. Extinction and Inattention 0 - No abnormality -Total 10 Query Text:A score of 0 is normal or asymptomatic. Total possible score is 42 . ED: Notify Physician for NIHSS increase by > / = 3 points. Inpatient: RN or Physician to activate a stroke alert for NIHSS increase of > / = 3 points. Coma Scale [Assess] -Eye Opening Spontaneous -Motor Obeys Commands -Verbal Oriented [Total] -Coma Scale Total 15
[2025-01-28] MEDS: Dext 5%-0.45% NS 1,000 ML 75 ML IV (13:05)
[2025-01-29] VITALS (11 sets, daily range): BP systolic 166–204; BP diastolic 81–97; PULSE 70–100; RESP 16–18; TEMP 36.6–37.3; O2SAT 93–98; BMI 26.8
[2025-01-29] MEDS: Dext 5%-0.45% NS 1,000 ML 75 ML IV ×2 (00:31→16:14)
[2025-01-29] MEDS: MELATONIN 10 MG TABLET PO (02:20)
[2025-01-29] MEDS: 0.9% Saline Lock 10 ML Syringe IV ×3 (02:21→22:31)
[2025-01-29 06:21] LABS: Hematocrit 49.7 % (37-47); Hemoglobin 17.4 g/dL (12.0-15.0); Immature Granulocytes Count 0.080 X10^3/uL (0.0-0.0); Mean Corp Hgb Conc 35.0 g/dL (32-36); Mean Corpuscular Volume 89.4 fL (81-99); Mean Platelet Vol. 10.0 fl (6.2-12.0); NRBC Flagged by Analyzer 0 % (0-5); Platelet Count 210 K/mm3 (150-450); RBC Distribution Width CV 14.3 % (11.6-14.6); RBC Distribution Width SD 46.9 fl (35.1-43.9); Red Blood Count 5.56 M/mm3 (4.2-5.4); White Blood Count 13.8 K/mm3 (4.4-11.0)
[2025-01-29 06:49] LABS: Anion Gap 11 (5-15); BUN 16 mg/dL (4-19); BUN/Creat Ratio 25.4 RATIO (10-20); Calcium,Total 8.5 mg/dL (7.6-11.0); Carbon Dioxide 20.7 mmol/L (21.0-32.0); Chloride 106 mmol/L (98-108); Estimated Creatinine Clearance 68.84 ml/min (50-250); Glucose 126 mg/dL (70-99); Potassium 2.8 mmol/L (3.3-5.1)
[2025-01-29] MEDS: Nicotine (PBKC) 14 MG Patch TD (08:24)
[2025-01-29 10:13] LABS: Magnesium 1.7 mg/dL (1.5-2.2)
[2025-01-29] MEDS: Potassium Chloride Oral Tablet 20 MEQ 60 MEQ PO (10:49)
--- NOTE | 2025-01-29 11:13 | PN.HOSP_ITS ---
Subjective Subjective No issues overnight, will check urine today as she did have a leukocytosis yesterday which I felt could possibly be reactive however while it is lower is not normal today. She is on room air and breath sounds are unremarkable so I do not think she has pneumonia Objective Data Objective Data Vital Signs: Vital Signs Temp Pulse Resp BP Pulse Ox O2 Del Method 97.8 F 70 16 169/81 H 95 Room Air 01/29/25 08:19 01/29/25 10:37 01/29/25 10:26 01/29/25 10:37 01/29/25 10:26 01/29/25 10:26 Oxygen Delivery Method Room Air Weight: 166 lb 0.129 oz Body Mass Index (BMI) 26.8 Intake & Output: Intake and Output for Last 24 Hours 01/28/25 01/29/25 01/30/25 03:59 03:59 03:59 Intake Total 1000 / 1000 2205.83 / 2205.83 Output Total 350 / 350 650 / 650 200 / 200 Balance 650 / 650 1555.83 / 1555.83 -200 / -200 Lab / Micro Data 01/29/25 06:00 01/29/25 06:00 Labs: Laboratory Results - last 24 hr 01/29/25 06:00: WBC 13.8 H, RBC 5.56 H, Hgb 17.4 H, Hct 49.7 H, MCV 89.4, MCH 31.3, MCHC 35.0, RDW Std Deviation 46.9 H, RDW Coeff of Gladis 14.3, Plt Count 210, MPV 10.0, Immature Gran % (Auto) 0.600, Neut % (Auto) 77.0 H, Lymph % (Auto) 13.3 L, [place] % (Auto) 7.7, Eos % (Auto) 0.9, Baso % (Auto) 0.5, Absolute Neuts (auto) 10.6 H, Absolute Lymphs (auto) 1.83, Nucleated RBC % 0, Sodium 138, P otassium 2.8 L, Chloride 106, Carbon Dioxide 20.7 L, Anion Gap 11, BUN 16, C reatinine 0.64 L, Estim Creat Clear Calc 68.84, Est GFR (MDRD) Non-Af 96, B UN/Creatinine Ratio 25.4 H, Glucose 126 H, Calcium 8.5, Phosphorus 2.7, Magnesium 1.7 Physical Exam Narrative General: Alert, Oriented x3, Cooperative, No apparent distress HEENT: Atraumatic, PERRLA, EOMI, Normocephalic Oral: Moist Mucosa Neck: Supple, No JVD Lungs: Diminished, Normal air movement, No rhonchi, No wheeze, No rales Cardiovascular: Regular rate, Regular Rhythm, Normal S1, Normal S2, No murmurs Abdomen: Soft, Non Tender, Non-Distended, No Hepato-splenomegaly Extremities: No edema, Capillary Refill Less than 3 Seconds Skin: No rashes, No breakdown Musculoskeletal: No Tenderness to Palpation of Joints or Extremities Neurological: Her right arm is paralyzed with minimal effort against gravity, her right leg has some effort, she does have a slight facial palsy and decreased sensation. Left side is unremarkable and normal Psych/Mental Status: Normal Affect, Appropriate Assessment & Plan Assessment/Plan (1) Right arm weakness: PLAN: Plan 1. 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 She presented to the hospital with significantly elevated blood pressures because she took herself off of all of her medications and followed a homeopathic route ? Oddly enough her thyroid hormones are normal ?Given protein in her urine, continue with lisinopril and Norvasc. As she is likely chronically severely hypertensive will not make any more significant changes as she should have this gradually lowered, not acutely lowered ? Continue with as needed hydralazine ? Will likely need placement on discharge, PT/OT ? Will consult case management ? Awaiting evaluation by neurology ?Echocardiogram with an EF of 65% ? Continue with statin therapy as well as an aspirin ? She has been accepted to [place] [facility], will await pre-CERT ? Speech therapy performed a modified barium swallow recommending regular textures and thin liquids with small bites and small sips as compensatory mechanisms 2. History of hypothyroidism ? She stopped taking medications 4 years ago ? T3 and T4 are normal, TSH was normal as well 3. Concern for possible polycythemia/leukocytosis ? Regardless she is already being treated with aspirin and will continue with IV fluids ? An erythropoietin level is pending however this does not delay discharge ? Will obtain a UA to evaluate for possible UTI given the slight elevation in her white blood cell count DVT: SCDs Charges/Coding Visit Charges Inpatient E&M: 57295 Subs Hosp L2 NIHSS NIHSS Nursing Documentation NIHSS Nursing Documentation: NIHSS: Ischemic Stroke/TIA Start: 01/25/25 15:16 Text: For PCU Patients: NIH and Neuro Check every 4 Status: Complete hours, PRN and with change in RN caregiver. Freq: [id number] Protocol: Activity Type Activity Date Activity User E-sign Co-sign Detail Recorded Client Recorded Date Recorded By Document 01/27/25 13:03 pcu 01/27/25 13:04 01/27/25 13:03 NIH Stroke Scale [NIHSS] A score of 0 is normal or asymptomatic . Total possible score is 42. Inpatient: RN or Physician to activate a stroke alert for onset of new stroke symptoms or with NIHSS increase >/= 3 points. Following change in neurological status, NIHSS will be performed per physician order or more frequently PRN. -1a. Level of Consciousness 0 - Alert; keenly responsive -1b. LOC Questions 0 - Answers BOTH questions correctly -1c. LOC Commands 0 - Performs BOTH tasks correctly -2. Best Gaze 0 - Normal -3. Visual 0 - No visual loss -4. Facial Palsy 2 - Partial paralysis ( total or near- total paralysis of lower face) -5a. Left Arm 0 - No drift; arm holds 90 ( or 45) degrees for full 10 seconds -5b. Right Arm 3 - No effort against gravity ; arm falls -6a. Left Leg 0 - No drift; leg holds 30- degree position for full 5 seconds -6b. Right Leg 1 - Drift; leg falls by the end of 5- seconds, but does not hit bed -7. Limb Ataxia 2 - Present in 2 limbs -8. Sensory 1 - Mild-to- moderate sensory loss; -9. Best Language 0 - No aphasia; normal -10. Dysarthria 1 = Mild-to- moderate dysarthria; -11. Extinction and Inattention 0 - No abnormality -Total 10 Query Text:A score of 0 is normal or asymptomatic. Total possible score is 42 . ED: Notify Physician for NIHSS increase by > / = 3 points. Inpatient: RN or Physician to activate a stroke alert for NIHSS increase of > / = 3 points. Coma Scale [Assess] -Eye Opening Spontaneous -Motor Obeys Commands -Verbal Oriented [Total] -Coma Scale Total 15
[2025-01-29 16:29] LABS: Color, Urine Yellow (Yellow); Glucose, Dipstick Normal (Normal); Ketone-Dipstick Negative (Negative); Leukocyte Esterase-Dipstick Negative /ul (Negative); Nitrite-Dipstick Negative (Negative); Occult Blood-Urine 25 /ul (Negative); Protein-Dipstick 15 mg/dl (Negative); Specific Gravity, Urine 1.010 (1.002-1.030); Urine Bilirubin Dipstick Negative (Negative)
[2025-01-29 16:41] LABS: Mucous, Urine RARE /hpf (<or=2+); Red Blood Cells-Urine 0-5 SEEN /hpf (0-5); Squamous Epithelial Cells - UA 0-5 SEEN /hpf (5-10)
[2025-01-30] VITALS (7 sets, daily range): BP systolic 145–198; BP diastolic 66–107; PULSE 82–99; RESP 17–18; TEMP 36.6–36.8; O2SAT 94–96; BMI 26.8
[2025-01-30] MEDS: Dext 5%-0.45% NS 1,000 ML 75 ML IV ×2 (03:03→20:07)
[2025-01-30 07:02] LABS: Hematocrit 47.3 % (37-47); Hemoglobin 15.9 g/dL (12.0-15.0); Immature Granulocytes Count 0.030 X10^3/uL (0.0-0.0); Mean Corp Hgb Conc 33.6 g/dL (32-36); Mean Corpuscular Volume 90.8 fL (81-99); Mean Platelet Vol. 10.2 fl (6.2-12.0); NRBC Flagged by Analyzer 0 % (0-5); Platelet Count 196 K/mm3 (150-450); RBC Distribution Width CV 14.2 % (11.6-14.6); RBC Distribution Width SD 47.8 fl (35.1-43.9); Red Blood Count 5.21 M/mm3 (4.2-5.4); White Blood Count 8.7 K/mm3 (4.4-11.0)
[2025-01-30 07:30] LABS: Anion Gap 10 (5-15); BUN 11 mg/dL (4-19); BUN/Creat Ratio 16.4 RATIO (10-20); Calcium,Total 8.4 mg/dL (7.6-11.0); Carbon Dioxide 22.6 mmol/L (21.0-32.0); Chloride 108 mmol/L (98-108); Estimated Creatinine Clearance 68.84 ml/min (50-250); Glucose 107 mg/dL (70-99); Potassium 3.3 mmol/L (3.3-5.1)
[2025-01-30] MEDS: Nicotine (PBKC) 14 MG Patch TD (08:45)
[2025-01-30] MEDS: 0.9% Saline Lock 10 ML Syringe IV (09:00)
--- NOTE | 2025-01-30 09:29 | PCM.PN.HOSP ---
Subjective Subjective Feels about the same, urine is still concentrated indicating dehydration which fits with her concentrated hemoglobin continue with IV fluids Objective Data Objective Data Vital Signs: Vital Signs Temp Pulse Resp BP Pulse Ox O2 Del Method 98.2 F 93 17 198/107 H 95 Room Air 01/30/25 08:00 01/30/25 08:59 01/30/25 08:00 01/30/25 08:59 01/30/25 08:00 01/30/25 08:00 Oxygen Delivery Method Room Air Weight: 166 lb 0.129 oz Body Mass Index (BMI) 26.8 Intake & Output: Intake and Output for Last 24 Hours 01/29/25 01/30/25 01/31/25 03:59 03:59 03:59 Intake Total 2205.83 / 2205.83 2691.25 / 2691.25 451.25 / 451.25 Output Total 650 / 650 1300 / 1300 Balance 1555.83 / 1555.83 1391.25 / 1391.25 451.25 / 451.25 Lab / Micro Data 01/30/25 06:20 01/30/25 06:20 Labs: Laboratory Results - last 24 hr 01/29/25 06:00: Phosphorus 2.7, Magnesium 1.7 01/29/25 16:09: Urine Color Yellow, Urine Clarity Clear, Urine pH 6.0, Ur Specific [place] 1.010, Urine Protein 15 H, Urine Glucose (UA) Normal, Urine Ketones Negative, Urine Occult Blood 25 H, Urine Nitrite Negative, Urine Bilirubin Negative, Urine Urobilinogen Normal, Ur Leukocyte Esterase Negative, Urine RBC 0-5 SEEN, Urine WBC 0-5 SEEN, Ur Squamous Epith Cells 0-5 SEEN, Urine Bacteria 1+, Hyaline Casts 0-5 SEEN, Urine Mucus RARE 01/30/25 06:20: WBC 8.7, RBC 5.21, Hgb 15.9 H, Hct 47.3 H, MCV 90.8, MCH 30.5, MCHC 33.6, RDW Std Deviation 47.8 H, RDW Coeff of Gladis 14.2, Plt Count 196, MPV 10.2, Immature Gran % (Auto) 0.300, Neut % (Auto) 61.2, Lymph % (Auto) 25.1, [place] % (Auto) 8.8, Eos % (Auto) 3.7, Baso % (Auto) 0.9, Absolute Neuts (auto) 5.3, Absolute Lymphs (auto) 2.19, Nucleated RBC % 0, Sodium 140, Potassium 3.3, Chloride 108, Carbon Dioxide 22.6, Anion Gap 10, BUN 11, Creatinine 0.66 L, Estim Creat Clear Calc 68.84, Est GFR (MDRD) Non-Af 95, BUN/Creatinine Ratio 16.4, Glucose 107 H, Calcium 8.4 Physical Exam Narrative General: Alert, Oriented x3, Cooperative, No apparent distress HEENT: Atraumatic, PERRLA, EOMI, Normocephalic Oral: Moist Mucosa Neck: Supple, No JVD Lungs: Diminished, Normal air movement, No rhonchi, No wheeze, No rales Cardiovascular: Regular rate, Regular Rhythm, Normal S1, Normal S2, No murmurs Abdomen: Soft, Non Tender, Non-Distended, No Hepato-splenomegaly Extremities: No edema, Capillary Refill Less than 3 Seconds Skin: No rashes, No breakdown Musculoskeletal: No Tenderness to Palpation of Joints or Extremities Neurological: Her right arm is paralyzed with minimal effort against gravity, her right leg has some effort, she does have a slight facial palsy and decreased sensation. Left side is unremarkable and normal Psych/Mental Status: Normal Affect, Appropriate Assessment & Plan Assessment/Plan (1) Right arm weakness: PLAN: Plan 1. 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 She presented to the hospital with significantly elevated blood pressures because she took herself off of all of her medications and followed a homeopathic route ? Oddly enough her thyroid hormones are normal ?Given protein in her urine, continue with lisinopril and Norvasc. As she is likely chronically severely hypertensive will not make any more significant changes as she should have this gradually lowered, not acutely lowered ? Continue with as needed hydralazine ? Will likely need placement on discharge, PT/OT ? Will consult case management ?Appreciate neurology's assistance ?Echocardiogram with an EF of 65% ? Continue with statin therapy as well as an aspirin ? She has been accepted to [facility], will await pre-CERT ? Speech therapy performed a modified barium swallow recommending regular textures and thin liquids with small bites and small sips as compensatory mechanisms 2. History of hypothyroidism ? She stopped taking medications 4 years ago ? T3 and T4 are normal, TSH was normal as well 3. Concern for possible polycythemia/leukocytosis ? Regardless she is already being treated with aspirin and will continue with IV fluids, she is improving with IV fluids indicating hemoconcentration component ? An erythropoietin level is pending however this does not delay discharge ?Leukocytosis resolved, and urine was unremarkable. She did not receive any antibiotics likely reactive DVT: SCDs Charges/Coding Visit Charges Inpatient E&M: 61512 Subs Hosp L2 NIHSS NIHSS Nursing Documentation NIHSS Nursing Documentation: NIHSS: Ischemic Stroke/TIA Start: 01/25/25 15:16 Text: For PCU Patients: NIH and Neuro Check every 4 Status: Complete hours, PRN and with change in RN caregiver. Freq: [id number] Protocol: Activity Type Activity Date Activity User E-sign Co-sign Detail Recorded Client Recorded Date Recorded By Document 01/27/25 13:03 pcu 01/27/25 13:04 01/27/25 13:03 NIH Stroke Scale [NIHSS] A score of 0 is normal or asymptomatic . Total possible score is 42. Inpatient: RN or Physician to activate a stroke alert for onset of new stroke symptoms or with NIHSS increase >/= 3 points. Following change in neurological status, NIHSS will be performed per physician order or more frequently PRN. -1a. Level of Consciousness 0 - Alert; keenly responsive -1b. LOC Questions 0 - Answers BOTH questions correctly -1c. LOC Commands 0 - Performs BOTH tasks correctly -2. Best Gaze 0 - Normal -3. Visual 0 - No visual loss -4. Facial Palsy 2 - Partial paralysis ( total or near- total paralysis of lower face) -5a. Left Arm 0 - No drift; arm holds 90 ( or 45) degrees for full 10 seconds -5b. Right Arm 3 - No effort against gravity ; arm falls -6a. Left Leg 0 - No drift; leg holds 30- degree position for full 5 seconds -6b. Right Leg 1 - Drift; leg falls by the end of 5- seconds, but does not hit bed -7. Limb Ataxia 2 - Present in 2 limbs -8. Sensory 1 - Mild-to- moderate sensory loss; -9. Best Language 0 - No aphasia; normal -10. Dysarthria 1 = Mild-to- moderate dysarthria; -11. Extinction and Inattention 0 - No abnormality -Total 10 Query Text:A score of 0 is normal or asymptomatic. Total possible score is 42 . ED: Notify Physician for NIHSS increase by > / = 3 points. Inpatient: RN or Physician to activate a stroke alert for NIHSS increase of > / = 3 points. Coma Scale [Assess] -Eye Opening Spontaneous -Motor Obeys Commands -Verbal Oriented [Total] -Coma Scale Total 15
[2025-01-30] MEDS: MELATONIN 10 MG TABLET PO (22:33)
[2025-01-31 00:50] VITALS: BP 168/91
[2025-01-31] MEDS: 0.9% Saline Lock 10 ML Syringe IV ×2 (00:50→21:41)
[2025-01-31 05:00] VITALS: BMI 26.8
[2025-01-31 06:00] VITALS: BP 155/92; PULSE 90; RESP 18; TEMP 36.9; O2SAT 92
[2025-01-31 07:32] LABS: Hematocrit 47.1 % (37-47); Hemoglobin 16.0 g/dL (12.0-15.0); Immature Granulocytes Count 0.030 X10^3/uL (0.0-0.0); Mean Corp Hgb Conc 34.0 g/dL (32-36); Mean Corpuscular Volume 89.7 fL (81-99); Mean Platelet Vol. 10.2 fl (6.2-12.0); NRBC Flagged by Analyzer 0 % (0-5); Platelet Count 206 K/mm3 (150-450); RBC Distribution Width CV 14.0 % (11.6-14.6); RBC Distribution Width SD 46.1 fl (35.1-43.9); Red Blood Count 5.25 M/mm3 (4.2-5.4); White Blood Count 9.1 K/mm3 (4.4-11.0)
[2025-01-31 07:52] LABS: Anion Gap 9 (5-15); BUN 12 mg/dL (4-19); BUN/Creat Ratio 18.8 RATIO (10-20); Calcium,Total 8.5 mg/dL (7.6-11.0); Carbon Dioxide 23.9 mmol/L (21.0-32.0); Chloride 105 mmol/L (98-108); Estimated Creatinine Clearance 68.84 ml/min (50-250); Glucose 114 mg/dL (70-99); Potassium 3.3 mmol/L (3.3-5.1)
[2025-01-31 08:47] VITALS: BP 171/88; PULSE 95; RESP 18; TEMP 36.6; O2SAT 94
[2025-01-31] MEDS: Nicotine (PBKC) 14 MG Patch TD (08:56)
--- NOTE | 2025-01-31 09:14 | DCINST_ITS ---
Discharge Instructions DC O2, CPAP, BIPAP needs Home O2 Discharge instructions: No Dressing / Incision Discharge Activity: Return to Normal Activity Dressing / Incision Call your doctor if you observe: Fever of 101 or Higher, Shortness of breath, Dizziness, Fainting spells, Swelling in the ankles, Chest pain and Increased palpitations (irregular heartbeat) Follow Up Care Test Results: Test results from this visit will be discussed in further detail at your follow- up appointment, if applicable. Discharge Plan Admission Admit Date/Time: 01/25/25 14:35 Attending Provider: Jan Clifton Primary Care Provider: Yohan John Consulting Providers: Jillian Rodriguez Discharge Orders/Prescriptions Prescriptions: New atorvastatin 80 mg Tablet 80 mg PO QHS 30 Days Qty: 30 0RF amlodipine 10 mg Tablet 10 mg PO DAILY 30 Days Qty: 30 0RF lisinopril 10 mg Tablet 10 mg PO DAILY 30 Days Qty: 30 0RF aspirin 81 mg Tablet,Chewable 81 mg PO BREAKFAST 30 Days Qty: 30 0RF No Action NK Referrals / Follow Up: Yohan John MD [Primary Care Provider] - Disposition Disposition (needs filled in before D/C Order can be placed): Inpatient Rehab Unit/Facility
--- NOTE | 2025-01-31 09:44 | PCM.PN.HOSP ---
Subjective Subjective No issues overnight Objective Data Objective Data Vital Signs: Vital Signs Temp Pulse Resp BP Pulse Ox O2 Del Method 97.8 F 95 18 171/88 H 94 Room Air 01/31/25 08:47 01/31/25 08:47 01/31/25 08:47 01/31/25 08:47 01/31/25 08:47 01/31/25 08:47 Oxygen Delivery Method Room Air Weight: 166 lb 0.129 oz Body Mass Index (BMI) 26.8 Intake & Output: Intake and Output for Last 24 Hours 01/30/25 01/31/25 02/01/25 03:59 03:59 03:59 Intake Total 2691.25 / 2691.25 1100.00 / 1100.00 100 / 100 Output Total 1300 / 1300 950 / 950 200 / 200 Balance 1391.25 / 1391.25 150.00 / 150.00 -100 / -100 Lab / Micro Data 01/31/25 07:16 01/31/25 07:16 Labs: Laboratory Results - last 24 hr 01/31/25 07:16: WBC 9.1, RBC 5.25, Hgb 16.0 H, Hct 47.1 H, MCV 89.7, MCH 30.5, MCHC 34.0, RDW Std Deviation 46.1 H, RDW Coeff of Gladis 14.0, Plt Count 206, MPV 10.2, Immature Gran % (Auto) 0.300, Neut % (Auto) 66.2, Lymph % (Auto) 21.7, Kershaw % (Auto) 8.0, Eos % (Auto) 3.3, Baso % (Auto) 0.5, Absolute Neuts (auto) 6.0, Absolute Lymphs (auto) 1.98, Nucleated RBC % 0, Sodium 138, Potassium 3.3, Chloride 105, Carbon Dioxide 23.9, Anion Gap 9, BUN 12, Creatinine 0.65 L, Estim Creat Clear Calc 68.84, Est GFR (MDRD) Non-Af 95, BUN/Creatinine Ratio 18.8, Glucose 114 H, Calcium 8.5 Physical Exam Narrative General: Alert, Oriented x3, Cooperative, No apparent distress HEENT: Atraumatic, PERRLA, EOMI, Normocephalic Oral: Moist Mucosa Neck: Supple, No JVD Lungs: Diminished, Normal air movement, No rhonchi, No wheeze, No rales Cardiovascular: Regular rate, Regular Rhythm, Normal S1, Normal S2, No murmurs Abdomen: Soft, Non Tender, Non-Distended, No Hepato-splenomegaly Extremities: No edema, Capillary Refill Less than 3 Seconds Skin: No rashes, No breakdown Musculoskeletal: No Tenderness to Palpation of Joints or Extremities Neurological: Her right arm is paralyzed with minimal effort against gravity, her right leg has some effort, she does have a slight facial palsy and decreased sensation. Left side is unremarkable and normal Psych/Mental Status: Normal Affect, Appropriate Assessment & Plan Assessment/Plan (1) Right arm weakness: PLAN: Plan 1. 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 She presented to the hospital with significantly elevated blood pressures because she took herself off of all of her medications and followed a homeopathic route ? Oddly enough her thyroid hormones are normal ?Given protein in her urine, continue with lisinopril and Norvasc. As she is likely chronically severely hypertensive will not make any more significant changes as she should have this gradually lowered, not acutely lowered ? Continue with as needed hydralazine ? Will likely need placement on discharge, PT/OT ? Will consult case management ?Appreciate neurology's assistance ?Echocardiogram with an EF of 65% ? Continue with statin therapy as well as an aspirin ? She has been accepted to [facility], will await pre-CERT. She was medically ready for discharge on 01/28/2025 ? Speech therapy performed a modified barium swallow recommending regular textures and thin liquids with small bites and small sips as compensatory mechanisms 2. History of hypothyroidism ? She stopped taking medications 4 years ago ? T3 and T4 are normal, TSH was normal as well 3. Concern for possible polycythemia/leukocytosis ? Regardless she is already being treated with aspirin and will continue with IV fluids, she is improving with IV fluids indicating hemoconcentration component ? An erythropoietin level is pending however this does not delay discharge ?Leukocytosis resolved, and urine was unremarkable. She did not receive any antibiotics likely reactive DVT: SCDs Charges/Coding Visit Charges Inpatient E&M: 13606 Subs Hosp L1 NIHSS NIHSS Nursing Documentation NIHSS Nursing Documentation: NIHSS: Ischemic Stroke/TIA Start: 01/25/25 15:16 Text: For PCU Patients: NIH and Neuro Check every 4 Status: Complete hours, PRN and with change in RN caregiver. Freq: [id number] Protocol: Activity Type Activity Date Activity User E-sign Co-sign Detail Recorded Client Recorded Date Recorded By Document 01/27/25 13:03 pcu 01/27/25 13:04 01/27/25 13:03 NIH Stroke Scale [NIHSS] A score of 0 is normal or asymptomatic . Total possible score is 42. Inpatient: RN or Physician to activate a stroke alert for onset of new stroke symptoms or with NIHSS increase >/= 3 points. Following change in neurological status, NIHSS will be performed per physician order or more frequently PRN. -1a. Level of Consciousness 0 - Alert; keenly responsive -1b. LOC Questions 0 - Answers BOTH questions correctly -1c. LOC Commands 0 - Performs BOTH tasks correctly -2. Best Gaze 0 - Normal -3. Visual 0 - No visual loss -4. Facial Palsy 2 - Partial paralysis ( total or near- total paralysis of lower face) -5a. Left Arm 0 - No drift; arm holds 90 ( or 45) degrees for full 10 seconds -5b. Right Arm 3 - No effort against gravity ; arm falls -6a. Left Leg 0 - No drift; leg holds 30- degree position for full 5 seconds -6b. Right Leg 1 - Drift; leg falls by the end of 5- seconds, but does not hit bed -7. Limb Ataxia 2 - Present in 2 limbs -8. Sensory 1 - Mild-to- moderate sensory loss; -9. Best Language 0 - No aphasia; normal -10. Dysarthria 1 = Mild-to- moderate dysarthria; -11. Extinction and Inattention 0 - No abnormality -Total 10 Query Text:A score of 0 is normal or asymptomatic. Total possible score is 42 . ED: Notify Physician for NIHSS increase by > / = 3 points. Inpatient: RN or Physician to activate a stroke alert for NIHSS increase of > / = 3 points. Coma Scale [Assess] -Eye Opening Spontaneous -Motor Obeys Commands -Verbal Oriented [Total] -Coma Scale Total 15
[2025-01-31] MEDS: Dext 5%-0.45% NS 1,000 ML 75 ML IV (11:00)
--- NOTE | 2025-01-31 11:43 | CASEMGMT ---
EITAN STOCK received message from daughter Jessie to return call. RN MONTRELL called daughter, she was inquire about update from insurance. RN MONTRELL updated that insurance is still pending auth and will update as soon as received. Daughter requesting transport at discharge, CM to arrange when precert and discharge received. Daughter had no further questions.
[2025-01-31 14:00] VITALS: BP 134/65; PULSE 77; RESP 16; TEMP 36.7; O2SAT 94
[2025-01-31 21:34] VITALS: BP 185/93; PULSE 74; RESP 17; TEMP 36.4; O2SAT 96
[2025-01-31 21:41] VITALS: BP 185/93; PULSE 74
[2025-01-31] MEDS: Senna/Docusate Sodium 1 Tablet 2 TABLET PO (21:41)
[2025-02-01] VITALS (8 sets, daily range): BP systolic 144–180; BP diastolic 72–95; PULSE 74–99; RESP 16–18; TEMP 36.6–36.9; O2SAT 93–97; BMI 26.8
[2025-02-01] MEDS: Dext 5%-0.45% NS 1,000 ML 75 ML IV ×2 (00:26→13:52)
--- NOTE | 2025-02-01 07:49 | PCM.PN.HOSP ---
Reason for Visit Chief Complaint: Right sided weakness and hand incoordination Subjective Subjective Patient is a 69-year-old lady who presented with right-sided weakness and hand incoordination. Her assessment came back consistent with left thalamic nucleus CVA Objective Data Objective Data Vital Signs: Vital Signs Temp Pulse Resp BP Pulse Ox O2 Del Method 97.8 F 74 16 144/90 H 94 Room Air 02/01/25 06:00 02/01/25 06:00 02/01/25 06:00 02/01/25 06:00 02/01/25 06:00 02/01/25 06:00 Oxygen Delivery Method Room Air Weight: 75.3 kg Body Mass Index (BMI) 26.8 Intake & Output: Intake and Output for Last 24 Hours 01/30/25 01/31/25 02/01/25 23:59 23:59 23:59 Intake Total 1811.25 / 1911.25 1440 / 1440 1360 / 1360 Output Total 1100 / 1250 1050 / 1050 700 / 700 Balance 711.25 / 661.25 390 / 390 660 / 660 Lab / Micro Data 01/31/25 07:16 01/31/25 07:16 Labs: Laboratory Results - last 24 hr 01/31/25 07:16: Sodium 138, Potassium 3.3, Chloride 105, Carbon Dioxide 23.9, Anion Gap 9, BUN 12, Creatinine 0.65 L, Estim Creat Clear Calc 68.84, Est GFR (MDRD) Non-Af 95, BUN/Creatinine Ratio 18.8, Glucose 114 H, Calcium 8.5 Physical Exam Narrative GENERAL: cooperative HEENT: Atraumatic; normocephalic EYES; Anicteric, Normal Conjunctiva NECK; supple, normal thyroid, RESPIRATORY: Diminished to auscultation CARDIOVASCULAR: Regular S1 S2, GI: soft, normoactive bowel sounds, : No Renal angle tenderness; EXTREMITIES: No edema, no clubbing, MUSCULOSKELETAL: no muscle wasting NEURO: Awake; left facial droop with left-sided hemiparesis SKIN: No Rash PSYCH; Flat affect Assessment & Plan Assessment/Plan (1) Right arm weakness: PLAN: Plan Patient is a 69-year-old lady who presented with right-sided weakness and hand incoordination. Her assessment came back consistent with left thalamic nucleus CVA 2. Acute left thalamic kidney close CVA ? With significant left-sided paralysis. Patient was deemed outside the window for TNK patient was admitted to a monitored bed stroke treatment initiated. Patient was seen in consultation by neurology had an echo performed also did receive antiplatelet therapy as well as statin therapy. Plan is for patient to be discharged to group home facility pending bed availability 2. Acute hypertensive emergency ? Permissive hypertension was pursued given patient presentation 3. Hypothyroidism ? Patient had apparently stopped taking her levothyroxine for years prior her thyroid function test obtained on admission came back within normal limit 4. Polycythemia ? Plan is for patient to undergo outpatient evaluation including a C4 serum epogen as well as JAK2 mutation assay. Plan is for patient to be set up with heme-onc as outpatient 5. DVT prophylaxis ? Subcu Lovenox Time spent in the patient's overall evaluation,decision-making process, review of diagnostic data, adjustment of management, discussion with other providers, nursing nursing and ancillary staff involved in patient's care documentation, 36 Minutes Charges/Coding Visit Charges Inpatient E&M: 84902 Subs Hosp L2 NIHSS NIHSS Nursing Documentation NIHSS Nursing Documentation: NIHSS: Ischemic Stroke/TIA Start: 01/25/25 15:16 Text: For PCU Patients: NIH and Neuro Check every 4 Status: Complete hours, PRN and with change in RN caregiver. Freq: [id number] Protocol: Activity Type Activity Date Activity User E-sign Co-sign Detail Recorded Client Recorded Date Recorded By Document 01/27/25 13:03 pcu 01/27/25 13:04 01/27/25 13:03 NIH Stroke Scale [NIHSS] A score of 0 is normal or asymptomatic . Total possible score is 42. Inpatient: RN or Physician to activate a stroke alert for onset of new stroke symptoms or with NIHSS increase >/= 3 points. Following change in neurological status, NIHSS will be performed per physician order or more frequently PRN. -1a. Level of Consciousness 0 - Alert; keenly responsive -1b. LOC Questions 0 - Answers BOTH questions correctly -1c. LOC Commands 0 - Performs BOTH tasks correctly -2. Best Gaze 0 - Normal -3. Visual 0 - No visual loss -4. Facial Palsy 2 - Partial paralysis ( total or near- total paralysis of lower face) -5a. Left Arm 0 - No drift; arm holds 90 ( or 45) degrees for full 10 seconds -5b. Right Arm 3 - No effort against gravity ; arm falls -6a. Left Leg 0 - No drift; leg holds 30- degree position for full 5 seconds -6b. Right Leg 1 - Drift; leg falls by the end of 5- seconds, but does not hit bed -7. Limb Ataxia 2 - Present in 2 limbs -8. Sensory 1 - Mild-to- moderate sensory loss; -9. Best Language 0 - No aphasia; normal -10. Dysarthria 1 = Mild-to- moderate dysarthria; -11. Extinction and Inattention 0 - No abnormality -Total 10 Query Text:A score of 0 is normal or asymptomatic. Total possible score is 42 . ED: Notify Physician for NIHSS increase by > / = 3 points. Inpatient: RN or Physician to activate a stroke alert for NIHSS increase of > / = 3 points. Coma Scale [Assess] -Eye Opening Spontaneous -Motor Obeys Commands -Verbal Oriented [Total] -Coma Scale Total 15
[2025-02-01] MEDS: Nicotine (PBKC) 14 MG Patch TD (08:27)
--- NOTE | 2025-02-01 12:38 | CASEMGMT ---
EITAN STOCK updated by [facility] that they have precert for patient to discharge today for additional rehab. EITAN STOCK udpated hospitalist, awaiting discharge instructions. EITAN STOCK updated patient who then called daughter Jessie and was updated as well that patient has been approved by insurance to discharge to [facility] today. Patient and daughter voiced appreciation and had no further questions. EITAN STOCK updated DC demand planning manager to complete transport, send discharge instructions when available, and update family of transport time.
--- NOTE | 2025-02-01 13:48 | PCM.DC.SUM ---
Providers Date of Admission: 01/25/25 Date of Discharge: 02/01/25 Primary Care Physician: Dr. Yohan John MD Reason For Visit: SUSPECTED CVA Diagnosis Discharge Diagnosis (1) Right arm weakness: Status: Acute Code(s): R29.898 - Other symptoms and signs involving the musculoskeletal system Plan Patient is a 69-year-old lady who presented with right-sided weakness and hand incoordination. Her assessment came back consistent with left thalamic nucleus CVA 2. Acute left thalamic kidney close CVA ? With significant left-sided paralysis. Patient was deemed outside the window for TNK patient was admitted to a monitored bed stroke treatment initiated. Patient was seen in consultation by neurology had an echo performed also did receive antiplatelet therapy as well as statin therapy. Plan is for patient to be discharged to assisted facility pending bed availability 2. Acute hypertensive emergency ? Permissive hypertension was pursued given patient presentation 3. Hypothyroidism ? Patient had apparently stopped taking her levothyroxine for years prior her thyroid function test obtained on admission came back within normal limit 4. Polycythemia ? Plan is for patient to undergo outpatient evaluation including a C4 serum epogen as well as JAK2 mutation assay. Plan is for patient to be set up with heme-onc as outpatient 5. DVT prophylaxis ? Subcu Lovenox Time spent in the patient's overall evaluation,decision-making process, review of diagnostic data, adjustment of management, discussion with other providers, nursing nursing and ancillary staff involved in patient's care documentation, 36 Minutes Medications at Discharge Home Medications NK 01/25/25 amlodipine 10 mg tablet 10 mg PO DAILY 30 days #30 tabs 01/31/25 aspirin 81 mg chewable tablet 81 mg PO BREAKFAST 30 days #30 tabs 01/31/25 atorvastatin 80 mg tablet 80 mg PO QHS 30 days #30 tabs 01/31/25 lisinopril 10 mg tablet 10 mg PO DAILY 30 days #30 tabs 01/31/25 Physical Exam Narrative GENERAL: cooperative HEENT: Atraumatic; normocephalic EYES; Anicteric, Normal Conjunctiva NECK; supple, normal thyroid, RESPIRATORY: Diminished to auscultation CARDIOVASCULAR: Regular S1 S2, GI: soft, normoactive bowel sounds, : No Renal angle tenderness; EXTREMITIES: No edema, no clubbing, MUSCULOSKELETAL: no muscle wasting NEURO: Awake; left facial droop with left-sided hemiparesis SKIN: No Rash PSYCH; Flat affect Weight / BMI Weight Weight: 75.3 kg Body Mass Index (BMI) 26.8 ABG / Lab / Microbiology Data 01/31/25 07:16 01/31/25 07:16 D/C Instructions Discharge Activity: Return to Normal Activity Call your doctor if you observe: Fever of 101 or Higher, Shortness of breath, Dizziness, Fainting spells, Swelling in the ankles, Chest pain and Increased palpitations (irregular heartbeat) DC O2, CPAP, BIPAP Needs Home O2 Discharge instructions: No Meaningful Use Info Meaningful Use Meaningful Use Diagnoses (Choose all that apply): Ischemic CVA CVA Therapy Assessed for PT,OT and/or ST?: Yes Ischemic Stroke Antithrombotic order at d/c?: Yes Dx of Atrial fib/flutter?: No Statins at discharge?: Yes If patient is 75 or younger, pt will be discharged on HIGH intensity statin.: Yes Primary Dx Acute Ischemic CVA?: Yes IV thrombolytic ordered during stay?: No Reason IV thrombolytic not ordered: Treatment not Indicated Discharge Plan Admission Admit Date/Time: 01/25/25 14:35 Attending Provider: Brandt Jesus Primary Care Provider: Yohan John Consulting Providers: Jillian Rodriguez; Jan Clifton Discharge Orders/Prescriptions Prescriptions: New atorvastatin 80 mg Tablet 80 mg PO QHS 30 Days Qty: 30 0RF amlodipine 10 mg Tablet 10 mg PO DAILY 30 Days Qty: 30 0RF lisinopril 10 mg Tablet 10 mg PO DAILY 30 Days Qty: 30 0RF aspirin 81 mg Tablet,Chewable 81 mg PO BREAKFAST 30 Days Qty: 30 0RF No Action NK Referrals / Follow Up: Yohan John MD [Primary Care Provider] - Josiah Calhoun MD [Med Staff - Active Staff] - Within 1 Month (Polycythemia) Disposition Disposition (needs filled in before D/C Order can be placed): Inpatient Rehab Unit/Facility Charges/Coding Visit Charges Inpatient E&M: 28896 Disch Hosp >30min
--- NOTE | 2025-02-01 14:21 | PHA.DC.MR.R ---
Pharmacy IN Med Reconciliation Pharmacy Service has performed discharge medication reconciliation for this patient. The patient's discharge medication list was reviewed for discrepancies and discrepancies were resolved. Medications at Discharge Home Medications NK 01/25/25 amlodipine 10 mg tablet 10 mg PO DAILY 30 days #30 tabs 01/31/25 aspirin 81 mg chewable tablet 81 mg PO BREAKFAST 30 days #30 tabs 01/31/25 atorvastatin 80 mg tablet 80 mg PO QHS 30 days #30 tabs 01/31/25 lisinopril 10 mg tablet 10 mg PO DAILY 30 days #30 tabs 01/31/25
--- NOTE | 2025-02-01 15:41 | CASEMGMT ---
Discharge Planning Discharge instructions and transport time sent to [facility]. Physicians will transport pt by cot at 8p. Nursing, RN CM, and pt updated. VM left for pts daughter (Jessie). Evelin Tyler DC Planning Asst.
[2025-02-01] MEDS: 0.9% Saline Lock 10 ML Syringe IV (19:47)
== END 2025-02-01 20:50 | DRG 65 ==
LOC: ED 14:52 → PCU 14:53
PROVIDERS: Family Medicine; Admitting Provider Internal Medicine; Emergency Provider Emergency Medicine; PCP Family Medicine; Visit Provider Internal Medicine
DX: I63.89 Other cerebral infarction (principal); I16.1 Hypertensive emergency; E86.0 Dehydration; E03.9 Hypothyroidism, unspecified; I10 Essential (primary) hypertension; F17.210 Nicotine dependence, cigarettes, uncomplicated; D75.1 Secondary polycythemia; R29.898 Other symptoms and signs involving the musculoskeletal system; R29.703 NIHSS score 3; Z90.49 Acquired absence of other specified parts of digestive tract; R53.81 Other malaise
CPT/HCPCS: 36415; 70450; 70496; 70498; 70551; 74230; 80048; 80061; 81001; 82668; 82962; 83036; 83735; 84100; 84439; 84443; 84481; 84484; 85014; 85018; 85025; 85610; 85730; 92507; 92523; 92526; 92610; 92611; 93005; 93306; 94668; 94762; 97110; 97116; 97163; 97167; 97530; 97535; 97802; 99285; Q9957; Q9967; A4216; C8929; J2405

== ENCOUNTER → 2025-02-28 | Outpatient (CLI) | payer MEDICARE, SELFPAY ==
[2025-02-28 18:09] LABS: Hematocrit 43.4 % (37-47); Hemoglobin 14.6 g/dL (12.0-15.0); Immature Granulocytes Count 0.040 X10^3/uL (0.0-0.0); Mean Corp Hgb Conc 33.6 g/dL (32-36); Mean Corpuscular Volume 90.8 fL (81-99); Mean Platelet Vol. 10.9 fl (6.2-12.0); NRBC Flagged by Analyzer 0 % (0-5); Platelet Count 223 K/mm3 (150-450); RBC Distribution Width CV 13.7 % (11.6-14.6); RBC Distribution Width SD 46.0 fl (35.1-43.9); Red Blood Count 4.78 M/mm3 (4.2-5.4); White Blood Count 8.0 K/mm3 (4.4-11.0)
[2025-02-28 18:34] LABS: Free T3 3.1 pg/mL (2.18-3.98)
== END | disposition home or self-care (01) ==
LOC: MTLAB 15:34
PROVIDERS: PCP Family Medicine; Referring Provider Family Medicine; Visit Provider Family Medicine
DX: E03.9 Hypothyroidism, unspecified (principal); R71.8 Other abnormality of red blood cells
CPT/HCPCS: 36415; 84439; 84443; 84481; 85025

== ENCOUNTER → 2025-03-22 | Outpatient (CLI) | payer MEDICARE, SELFPAY ==
[2025-03-22 13:00] LABS: AST(SGOT) 27 U/L (<=31); Alanine Aminotransfer ALT/SGPT 34 U/L (<=34); Albumin, Serum 4.4 g/dL (3.4-4.8); Alkaline Phosphatase 124 U/L (35-104); Anion Gap 13 (5-15); BUN 15 mg/dL (4-19); BUN/Creat Ratio 17.6 RATIO (10-20); Calcium,Total 9.9 mg/dL (7.6-11.0); Carbon Dioxide 26.2 mmol/L (21.0-32.0); Chloride 103 mmol/L (98-108); Cholesterol 112 mg/dL (<=200); Globulin 3.5 g/dL (2.2-4.2); Glucose 85 mg/dL (70-99); Low Density Lipoprotein Calc. 37 mg/dL; Potassium 3.9 mmol/L (3.3-5.1); Triglycerides 124 mg/dL; Very Low Density Lipoprotein 25 mg/dL (5-40); cholesterol:hdl ratio screen 2.11
== END | disposition home or self-care (01) ==
LOC: HHLAB 11:12
PROVIDERS: PCP Family Medicine; Visit Provider Family Medicine
DX: I69.351 Hemiplegia and hemiparesis following cerebral infarction affecting right dominant side (principal); R73.09 Other abnormal glucose
CPT/HCPCS: 80053; 80061; 83036